=== PATIENT | female | born 1960 | race Caucasian/White ===

== ENCOUNTER 2018-03-27 10:25 | Inpatient (IN) | payer OTHER, BC ==
[2018-03-27] MEDS ORDERED: DEXTROSE 50% 50 ML SYRINGE As Ordered (10:47)
[2018-03-27] MEDS: DEXTROSE 50% 50 ML SYRINGE IV ×2 (10:50→13:16)
[2018-03-27 11:03] LABS: BEDSIDE GLUCOSE 211 MG/DL (70-105)
[2018-03-27] MEDS: NS 1,000 ML IV ×2 (11:15)
[2018-03-27 11:37] LABS: BASO % 0.2 % (0.0-1.0); HEMATOCRIT 31.2 % (36.0-47.0); HEMOGLOBIN 10.4 g/dl (12.0-15.5); IMMATURE GRANULOCYTE % 0.9 % (0-3.0); LYMPH # 0.8 10^3/uL (1.5-4.5); LYMPH % 6.4 % (24.0-44.0); MEAN CORPUSCULAR HEMOGLOBIN 37.5 pg (27.0-33.0); MEAN CORPUSCULAR HGB CONC 33.3 g/dl (32.0-36.5); MEAN CORPUSCULAR VOLUME 112.6 fl (80.0-96.0); MONO # 1.4 10^3/uL (0.0-0.8); MONO % 11.3 % (0.0-5.0); NEUTROPHILS # 9.9 10^3/uL (1.8-7.7); NEUTROPHILS % 81.2 % (36.0-66.0); PLATELET COUNT, AUTOMATED 142 10^3/uL (150-450); RED BLOOD COUNT 2.77 10^6/uL (4.00-5.40); RED CELL DISTRIBUTION WIDTH 17.2 % (11.5-14.5); WHITE BLOOD COUNT 12.1 10^3/uL (4.0-10.0)
[2018-03-27 11:49] LABS: INR 1.06; PARTIAL THROMBOPLASTIN TIME 31.3 SECONDS (26.8-37.9); PROTHROMBIN TIME 13.9 SECONDS (12.4-14.5)
[2018-03-27 11:59] LABS: LACTIC ACID SEPSIS PROTOCOL 1.6 MMOL/L (0.4-2.0)
[2018-03-27 12:04] LABS: ALBUMIN 2.7 GM/DL (3.2-5.2); ALBUMIN/GLOBULIN RATIO 0.77 (1.00-1.93); ALKALINE PHOSPHATASE 175 U/L (45-117); ALT/SGPT 49 U/L (12-78); ANION GAP 25 MEQ/L (8-16); AST/SGOT 166 U/L (7-37); BILIRUBIN,DIRECT 0.4 MG/DL (0.0-0.2); BILIRUBIN,TOTAL 0.8 MG/DL (0.2-1.0); BLOOD UREA NITROGEN 19 MG/DL (7-18); CALCIUM LEVEL 7.6 MG/DL (8.5-10.1); CARBON DIOXIDE LEVEL 11 MEQ/L (21-32); CHLORIDE LEVEL 88 MEQ/L (98-107); CPK CREATINE PHOSPHOKINASE 24 U/L (26-192); CREATININE FOR GFR 1.88 MG/DL (0.55-1.30); GLOMERULAR FILTRATION RATE 29.4 (>51); GLUCOSE, FASTING 154 MG/DL (70-100); POTASSIUM SERUM 3.6 MEQ/L (3.5-5.1); SODIUM LEVEL 124 MEQ/L (136-145); TOTAL PROTEIN 6.2 GM/DL (6.4-8.2); TROPONIN I < 0.02 NG/ML (< 0.10)
[2018-03-27 12:05] LABS: CK-MB VALUE MASS 3.2 NG/ML (<3.6); MB/CK RELATIVE INDEX 13.33 (< OR =4)
[2018-03-27 12:17] LABS: AMYLASE 1675 U/L (25-115); LIPASE 23700 U/L (73-393)
[2018-03-27 13:12] LABS: BEDSIDE GLUCOSE 58 MG/DL (70-105)
[2018-03-27] MEDS: D5W/0.45% SODIUM CHLORIDE 1,000 ML IV (13:40)
[2018-03-27 13:58] LABS: KETONE, URINE AUTO RFX 1+ mg/dL (NEGATIVE); LEUKOCYTE ESTERASE UR AUTO RFX NEGATIVE (NEGATIVE); MUCUS, URINE RFX SMALL (NEGATIVE); NITRITE, URINE AUTO RFX NEGATIVE (NEGATIVE); RBC, URINE AUTO RFX 1 /HPF (0-3); SPECIFIC GRAVITY UR AUTO RFX 1.011 (1.002-1.035); SQUAM EPITHELIAL CELL UR AURFX 4 /HPF (0-6); WBC, URINE AUTO RFX 3 /HPF (0-3)
[2018-03-27 14:06] LABS: OSMOLALITY URINE 282 MOSM/KG (500-800)
[2018-03-27] MEDS: ONDANSETRON 4MG/2ML VIAL (J2405) IV (14:10)
[2018-03-27 14:15] LABS: BEDSIDE GLUCOSE 199 MG/DL (70-105)
[2018-03-27] MEDS: fentaNYL 100 MCG/2 ML INJECTION (J3010) IV ×2 (14:15→14:41)
[2018-03-27 14:19] LABS: CREATININE,RANDOM URINE 66.3 MG/DL; SODIUM,RANDOM URINE 28 MEQ/L
[2018-03-27 14:35] LABS: ABG BASE EXCESS -20.3 (-2.0-2.0); ABG HCO3 6.9 MEQ/L (22.0-26.0); ABG O2 SATURATION 96.1 % (95.0-99.0); ABG PARTIAL PRESSURE CO2 20.5 mmHg (35.0-45.0); ABG PARTIAL PRESSURE O2 99.6 mmHg (75.0-100.0); ABG STANDARD HCO3 9.6 MEQ/L (22.0-26.0); ABG TOTAL CO2 7.5 MEQ/L (22.0-29.0)
[2018-03-27 14:37] LABS: ABG pH (ARTERIAL) 7.143 UNITS (7.350-7.450)
[2018-03-27 14:42] LABS: OSMOLALITY SERUM 292 MOSM/KG (275-295)
[2018-03-27 14:47] LABS: ETHYL ALCOHOL (ETHANOL) 0.067 % (0.000-0.010); FREE T4 0.68 NG/DL (0.76-1.46)
[2018-03-27] MEDS ORDERED: MEROPENEM INJ 2 GM in NS 100 ML IV (15:15)
[2018-03-27 15:37] LABS: MAGNESIUM LEVEL 1.3 MG/DL (1.8-2.4)
[2018-03-27 15:44] LABS: BEDSIDE GLUCOSE 221 MG/DL (70-105)
[2018-03-27 15:51] LABS: CORTISOL BASELINE 33.2 UG/DL (4.3-22.4)
[2018-03-27] MEDS: HYDROmorphone HCL 1 MG/ML SYRINGE (J1170) IV ×2 (16:10→19:50)
[2018-03-27] MEDS: MEROPENEM INJ 1 GM in APPROPRIATE DILUENT 1 EA IV ×3 (16:13→17:00)
[2018-03-27 17:06] LABS: BEDSIDE GLUCOSE 195 MG/DL (70-105)
[2018-03-27 18:05] LABS: VENOUS BASE EXCESS -15.3 (-2.0-2.0); VENOUS HCO3 12.6 MEQ/L (23.0-27.0); VENOUS O2 SATURATION 80.4 % (60.0-80.0); VENOUS PARTIAL PRESSURE O2 50.3 mmHg (30.0-50.0); VENOUS PH 7.151 UNITS (7.330-7.430); VENOUS STANDARD HCO3 12.6 MEQ/L; VENOUS TOTAL CO2 13.8 MEQ/L (24.0-28.0)
[2018-03-27 18:05] LABS: BEDSIDE GLUCOSE 146 MG/DL (70-105)
[2018-03-27 18:32] LABS: ANION GAP 18 MEQ/L (8-16); BLOOD UREA NITROGEN 15 MG/DL (7-18); CALCIUM LEVEL 7.5 MG/DL (8.5-10.1); CARBON DIOXIDE LEVEL 15 MEQ/L (21-32); CHLORIDE LEVEL 95 MEQ/L (98-107); CK-MB VALUE MASS 4.9 NG/ML (<3.6); CPK CREATINE PHOSPHOKINASE 59 U/L (26-192); GLOMERULAR FILTRATION RATE 44.9 (>51); GLUCOSE, FASTING 136 MG/DL (70-100); POTASSIUM SERUM 4.3 MEQ/L (3.5-5.1); SODIUM LEVEL 128 MEQ/L (136-145); TROPONIN I < 0.02 NG/ML (< 0.10)
[2018-03-27 18:35] LABS: ACETONE/KETONE > 46.00 MG/DL (<2.81)
[2018-03-27 19:26] LABS: BEDSIDE GLUCOSE 174 MG/DL (70-105)
[2018-03-27] MEDS: OXAZEPAM 10 MG CAP PO ×2 (19:49→23:35)
[2018-03-27] MEDS: D5W/0.9% SODIUM CHLORIDE 1,000 ML IV (19:51)
[2018-03-27 20:34] LABS: BEDSIDE GLUCOSE 183 MG/DL (70-105)
[2018-03-27] MEDS ORDERED: DEXTROSE 50% 50 ML SYRINGE IV (23:00)
[2018-03-27] MEDS ORDERED: GLUCAGON FOR INJ 1 MG VIAL (J1610) SC (23:00)
[2018-03-27] MEDS ORDERED: GLUCOSE 4 GM CHEW TABLET PO (23:00)
[2018-03-27 23:17] LABS: BEDSIDE GLUCOSE 211 MG/DL (70-105)
[2018-03-27] MEDS: PANTOPRAZOLE 40MG INJ (PROTONIX) (C9113) IV (23:35)
[2018-03-27] MEDS: HumaLOG INSULIN (NovoLOG) PER UNIT SC (23:35)
[2018-03-28 00:53] LABS: ANION GAP 11 MEQ/L (8-16); BLOOD UREA NITROGEN 14 MG/DL (7-18); CALCIUM LEVEL 7.2 MG/DL (8.5-10.1); CARBON DIOXIDE LEVEL 19 MEQ/L (21-32); CHLORIDE LEVEL 99 MEQ/L (98-107); CK-MB VALUE MASS 4.9 NG/ML (<3.6); CPK CREATINE PHOSPHOKINASE 32 U/L (26-192); CREATININE FOR GFR 1.26 MG/DL (0.55-1.30); GLOMERULAR FILTRATION RATE 46.6 (>51); GLUCOSE, FASTING 191 MG/DL (70-100); MB/CK RELATIVE INDEX 15.31 (< OR =4); POTASSIUM SERUM 3.6 MEQ/L (3.5-5.1); SODIUM LEVEL 129 MEQ/L (136-145); TROPONIN I < 0.02 NG/ML (< 0.10)
[2018-03-28] MEDS: D5W/0.9% SODIUM CHLORIDE 1,000 ML IV (00:59)
[2018-03-28] MEDS: MAG SULF 1GM/100ML (MAG RUN) 1 GM in APPROPRIATE DILUENT 1 EA IV ×4 (01:40→09:26)
[2018-03-28] MEDS: MEROPENEM INJ 1 GM in APPROPRIATE DILUENT 1 EA IV ×2 (04:40→17:15)
[2018-03-28 06:02] LABS: BEDSIDE GLUCOSE 189 MG/DL (70-105)
[2018-03-28] MEDS: OXAZEPAM 10 MG CAP PO ×3 (06:07→21:48)
[2018-03-28] MEDS: HumaLOG INSULIN (NovoLOG) PER UNIT SC ×3 (06:08→19:03)
[2018-03-28 06:22] LABS: ALBUMIN 2.7 GM/DL (3.2-5.2); ALBUMIN/GLOBULIN RATIO 0.93 (1.00-1.93); ALKALINE PHOSPHATASE 148 U/L (45-117); ALT/SGPT 37 U/L (12-78); ANION GAP 11 MEQ/L (8-16); AST/SGOT 116 U/L (7-37); BLOOD UREA NITROGEN 12 MG/DL (7-18); CALCIUM LEVEL 7.5 MG/DL (8.5-10.1); CARBON DIOXIDE LEVEL 20 MEQ/L (21-32); CHLORIDE LEVEL 100 MEQ/L (98-107); CHOLESTEROL LEVEL 113 MG/DL (<200); CHOLESTEROL RISK RATIO 3.896 (<5); CREATININE FOR GFR 1.03 MG/DL (0.55-1.30); GLOMERULAR FILTRATION RATE 58.8 (>51); GLUCOSE, FASTING 153 MG/DL (70-100); HDL CHOLESTEROL 29 MG/DL (>40); LDL CHOLESTEROL 58.8 MG/DL (<100); LIPASE 6030 U/L (73-393); MAGNESIUM LEVEL 1.5 MG/DL (1.8-2.4); NON-HDL-C 84 MG/DL; POTASSIUM SERUM 3.5 MEQ/L (3.5-5.1); SODIUM LEVEL 131 MEQ/L (136-145); TOTAL PROTEIN 5.6 GM/DL (6.4-8.2); TRIGLYCERIDES LEVEL 126 MG/DL (<150)
[2018-03-28 06:26] LABS: FERRITIN 1440 NG/ML (8-252); IRON (FE) 55 UG/DL (50-170); PERCENT SATURATION 37.7 % (13.2-45.0); TOTAL IRON BINDING CAPACITY 146 UG/DL (250-450)
[2018-03-28 07:21] LABS: BASO % 0.1 % (0.0-1.0); HEMATOCRIT 27.1 % (36.0-47.0); HEMOGLOBIN 9.8 g/dl (12.0-15.5); IMMATURE GRANULOCYTE % 0.6 % (0-3.0); LYMPH # 0.4 10^3/uL (1.5-4.5); LYMPH % 2.8 % (24.0-44.0); MEAN CORPUSCULAR HEMOGLOBIN 37.5 pg (27.0-33.0); MEAN CORPUSCULAR HGB CONC 36.2 g/dl (32.0-36.5); MEAN CORPUSCULAR VOLUME 103.8 fl (80.0-96.0); MONO # 1.4 10^3/uL (0.0-0.8); MONO % 9.2 % (0.0-5.0); NEUTROPHILS # 13.4 10^3/uL (1.8-7.7); NEUTROPHILS % 87.3 % (36.0-66.0); PLATELET COUNT, AUTOMATED 119 10^3/uL (150-450); RED BLOOD COUNT 2.61 10^6/uL (4.00-5.40); RED CELL DISTRIBUTION WIDTH 16.5 % (11.5-14.5); WHITE BLOOD COUNT 15.3 10^3/uL (4.0-10.0)
[2018-03-28 09:15] LABS: BEDSIDE GLUCOSE 23 MG/DL (70-105)
[2018-03-28 09:15] LABS: BEDSIDE GLUCOSE 53 MG/DL (70-105)
[2018-03-28 09:15] LABS: BEDSIDE GLUCOSE 49 MG/DL (70-105)
[2018-03-28] MEDS: PANTOPRAZOLE 40MG INJ (PROTONIX) (C9113) IV ×2 (09:24→21:48)
[2018-03-28] MEDS: THIAMINE 100 MG TAB PO (09:25)
[2018-03-28] MEDS: FOLIC ACID 1 MG TAB PO (09:26)
[2018-03-28] MEDS: MULTIVITAMINS/MINERALS THERAP 1 TAB PO (09:26)
[2018-03-28 09:40] LABS: FOLATE 5.9 NG/ML (>5.4)
[2018-03-28 09:41] LABS: VITAMIN B12 LEVEL 1057 PG/ML (247-911)
[2018-03-28] MEDS: NS 1,000 ML IV ×2 (10:41→21:48)
[2018-03-28 10:47] LABS: CPK CREATINE PHOSPHOKINASE 43 U/L (26-192); MB/CK RELATIVE INDEX 11.62 (< OR =4); TROPONIN I 0.04 NG/ML (< 0.10)
[2018-03-28 11:18] LABS: BEDSIDE GLUCOSE 164 MG/DL (70-105)
[2018-03-28 12:18] LABS: BEDSIDE GLUCOSE 153 MG/DL (70-105)
[2018-03-28 12:53] LABS: ANION GAP 11 MEQ/L (8-16); BLOOD UREA NITROGEN 9 MG/DL (7-18); CARBON DIOXIDE LEVEL 20 MEQ/L (21-32); CHLORIDE LEVEL 102 MEQ/L (98-107); CREATININE FOR GFR 0.84 MG/DL (0.55-1.30); GLOMERULAR FILTRATION RATE > 60.0 (>51); GLUCOSE, FASTING 139 MG/DL (70-100); POTASSIUM SERUM 3.4 MEQ/L (3.5-5.1); SODIUM LEVEL 133 MEQ/L (136-145)
[2018-03-28] MEDS: BENAZEPRIL 20 MG TAB PO (13:26)
[2018-03-28] MEDS: BISOPROLOL FUMARATE 10 MG TAB PO (13:26)
[2018-03-28] MEDS: POTASSIUM CHLORIDE 10 MEQ SR TABLET PO (13:27)
[2018-03-28 15:37] LABS: BEDSIDE GLUCOSE 69 MG/DL (70-105)
[2018-03-28] MEDS ORDERED: MEROPENEM INJ 2 GM in NS 100 ML IV (16:00)
[2018-03-28 16:27] LABS: BEDSIDE GLUCOSE 136 MG/DL (70-105)
[2018-03-28 18:31] LABS: ANION GAP 11 MEQ/L (8-16); BLOOD UREA NITROGEN 7 MG/DL (7-18); CALCIUM LEVEL 7.8 MG/DL (8.5-10.1); CARBON DIOXIDE LEVEL 18 MEQ/L (21-32); CHLORIDE LEVEL 105 MEQ/L (98-107); CREATININE FOR GFR 0.82 MG/DL (0.55-1.30); GLOMERULAR FILTRATION RATE > 60.0 (>51); GLUCOSE, FASTING 101 MG/DL (70-100); POTASSIUM SERUM 3.7 MEQ/L (3.5-5.1); SODIUM LEVEL 134 MEQ/L (136-145)
[2018-03-29 00:06] LABS: BEDSIDE GLUCOSE 119 MG/DL (70-105)
[2018-03-29 00:37] LABS: ANION GAP 9 MEQ/L (8-16); BLOOD UREA NITROGEN 6 MG/DL (7-18); CARBON DIOXIDE LEVEL 20 MEQ/L (21-32); CHLORIDE LEVEL 105 MEQ/L (98-107); CREATININE FOR GFR 0.59 MG/DL (0.55-1.30); GLOMERULAR FILTRATION RATE > 60.0 (>51); GLUCOSE, FASTING 108 MG/DL (70-100); POTASSIUM SERUM 3.4 MEQ/L (3.5-5.1); SODIUM LEVEL 134 MEQ/L (136-145)
[2018-03-29] MEDS: MEROPENEM INJ 1 GM in APPROPRIATE DILUENT 1 EA IV (03:33)
[2018-03-29 05:47] LABS: BEDSIDE GLUCOSE 117 MG/DL (70-105)
[2018-03-29] MEDS: HumaLOG INSULIN (NovoLOG) PER UNIT SC ×3 (05:52→12:25)
[2018-03-29] MEDS: OXAZEPAM 10 MG CAP PO ×3 (06:10→22:08)
[2018-03-29 06:15] LABS: BASO % 0.1 % (0.0-1.0); EOS % 0.1 % (0.0-3.0); HEMATOCRIT 26.4 % (36.0-47.0); HEMOGLOBIN 9.5 g/dl (12.0-15.5); IMMATURE GRANULOCYTE % 0.5 % (0-3.0); LYMPH # 0.8 10^3/uL (1.5-4.5); LYMPH % 8.2 % (24.0-44.0); MEAN CORPUSCULAR HEMOGLOBIN 37.1 pg (27.0-33.0); MEAN CORPUSCULAR VOLUME 103.1 fl (80.0-96.0); MONO # 1.2 10^3/uL (0.0-0.8); MONO % 13.1 % (0.0-5.0); NEUTROPHILS # 7.1 10^3/uL (1.8-7.7); PLATELET COUNT, AUTOMATED 101 10^3/uL (150-450); RED BLOOD COUNT 2.56 10^6/uL (4.00-5.40); RED CELL DISTRIBUTION WIDTH 16.8 % (11.5-14.5); WHITE BLOOD COUNT 9.1 10^3/uL (4.0-10.0)
[2018-03-29 06:45] LABS: ALBUMIN 2.6 GM/DL (3.2-5.2); ALBUMIN/GLOBULIN RATIO 0.81 (1.00-1.93); ALKALINE PHOSPHATASE 164 U/L (45-117); ALT/SGPT 29 U/L (12-78); ANION GAP 8 MEQ/L (8-16); AST/SGOT 74 U/L (7-37); BLOOD UREA NITROGEN 6 MG/DL (7-18); CARBON DIOXIDE LEVEL 19 MEQ/L (21-32); CHLORIDE LEVEL 108 MEQ/L (98-107); CREATININE FOR GFR 0.52 MG/DL (0.55-1.30); GLOMERULAR FILTRATION RATE > 60.0 (>51); GLUCOSE, FASTING 104 MG/DL (70-100); LIPASE 972 U/L (73-393); MAGNESIUM LEVEL 1.5 MG/DL (1.8-2.4); POTASSIUM SERUM 3.3 MEQ/L (3.5-5.1); SODIUM LEVEL 135 MEQ/L (136-145); TOTAL PROTEIN 5.8 GM/DL (6.4-8.2)
[2018-03-29] MEDS: MAG SULF 1GM/100ML (MAG RUN) 1 GM in APPROPRIATE DILUENT 1 EA IV ×2 (08:12→09:16)
[2018-03-29] MEDS: PANTOPRAZOLE 40MG INJ (PROTONIX) (C9113) IV ×2 (09:15→22:08)
[2018-03-29] MEDS: MULTIVITAMINS/MINERALS THERAP 1 TAB PO (09:17)
[2018-03-29] MEDS: POTASSIUM CHLORIDE 10 MEQ SR TABLET PO (09:18)
[2018-03-29] MEDS: BISOPROLOL FUMARATE 10 MG TAB PO (09:18)
[2018-03-29] MEDS: FOLIC ACID 1 MG TAB PO (09:18)
[2018-03-29] MEDS: THIAMINE 100 MG TAB PO (09:19)
[2018-03-29] MEDS: BENAZEPRIL 20 MG TAB PO (09:28)
[2018-03-29 11:27] LABS: BEDSIDE GLUCOSE 199 MG/DL (70-105)
[2018-03-29] MEDS ORDERED: SLF 3 ML SYR IV (11:30)
[2018-03-29 12:25] LABS: ANION GAP 8 MEQ/L (8-16); BLOOD UREA NITROGEN 5 MG/DL (7-18); CARBON DIOXIDE LEVEL 22 MEQ/L (21-32); CHLORIDE LEVEL 104 MEQ/L (98-107); CREATININE FOR GFR 0.59 MG/DL (0.55-1.30); GLOMERULAR FILTRATION RATE > 60.0 (>51); GLUCOSE, FASTING 146 MG/DL (70-100); POTASSIUM SERUM 3.7 MEQ/L (3.5-5.1); SODIUM LEVEL 134 MEQ/L (136-145)
[2018-03-29] MEDS: SLF 3 ML SYR IV ×2 (13:33→22:08)
[2018-03-29 14:16] LABS: INSULIN LEVEL < 0.2 uIU/mL (2.6-24.9)
[2018-03-30] MEDS: IPRATROPIUM 0.5MG/ALBUTEROL 2.5MG INH SOL UD 3ML (DUONEB)(J7620) NEB ×8 (00:18→22:26)
[2018-03-30] MEDS: predniSONE 20 MG TAB PO (02:41)
[2018-03-30 03:06] LABS: ABG BASE EXCESS -5.3 (-2.0-2.0); ABG O2 SATURATION 93.3 % (95.0-99.0); ABG PARTIAL PRESSURE CO2 23.7 mmHg (35.0-45.0); ABG PARTIAL PRESSURE O2 63.7 mmHg (75.0-100.0); ABG TOTAL CO2 17.7 MEQ/L (22.0-29.0); ABG pH (ARTERIAL) 7.474 UNITS (7.350-7.450)
[2018-03-30] MEDS: LORazepam 2 MG/ML VIAL (J2060) IV ×5 (03:29→22:39)
[2018-03-30] MEDS: OXAZEPAM 10 MG CAP PO ×2 (04:12→06:00)
[2018-03-30 05:28] LABS: BASO % 0.1 % (0.0-1.0); HEMATOCRIT 25.4 % (36.0-47.0); HEMOGLOBIN 8.8 g/dl (12.0-15.5); IMMATURE GRANULOCYTE % 0.6 % (0-3.0); LYMPH # 0.3 10^3/uL (1.5-4.5); LYMPH % 2.3 % (24.0-44.0); MEAN CORPUSCULAR HEMOGLOBIN 36.4 pg (27.0-33.0); MEAN CORPUSCULAR HGB CONC 34.6 g/dl (32.0-36.5); MONO # 0.5 10^3/uL (0.0-0.8); MONO % 4.2 % (0.0-5.0); NEUTROPHILS # 11.5 10^3/uL (1.8-7.7); NEUTROPHILS % 92.8 % (36.0-66.0); PLATELET COUNT, AUTOMATED 105 10^3/uL (150-450); RED BLOOD COUNT 2.42 10^6/uL (4.00-5.40); RED CELL DISTRIBUTION WIDTH 17.1 % (11.5-14.5); WHITE BLOOD COUNT 12.4 10^3/uL (4.0-10.0)
[2018-03-30 05:40] LABS: POSITIVE DIFF POS FLAG
[2018-03-30 05:45] LABS: ALBUMIN 2.8 GM/DL (3.2-5.2); ALBUMIN/GLOBULIN RATIO 0.82 (1.00-1.93); ALKALINE PHOSPHATASE 164 U/L (45-117); ALT/SGPT 29 U/L (12-78); ANION GAP 10 MEQ/L (8-16); AST/SGOT 51 U/L (7-37); BILIRUBIN,TOTAL 1.5 MG/DL (0.2-1.0); BLOOD UREA NITROGEN 7 MG/DL (7-18); CALCIUM LEVEL 8.3 MG/DL (8.5-10.1); CARBON DIOXIDE LEVEL 20 MEQ/L (21-32); CHLORIDE LEVEL 102 MEQ/L (98-107); CREATININE FOR GFR 0.63 MG/DL (0.55-1.30); GLOMERULAR FILTRATION RATE > 60.0 (>51); GLUCOSE, FASTING 204 MG/DL (70-100); LIPASE 517 U/L (73-393); MAGNESIUM LEVEL 1.4 MG/DL (1.8-2.4); POTASSIUM SERUM 3.8 MEQ/L (3.5-5.1); SODIUM LEVEL 132 MEQ/L (136-145); TOTAL PROTEIN 6.2 GM/DL (6.4-8.2)
[2018-03-30] MEDS: HALOPERIDOL 5 MG/ML VIAL (J1630) IV (05:48)
[2018-03-30] MEDS: SLF 3 ML SYR IV ×3 (05:54→21:19)
[2018-03-30] MEDS: VANCOMYCIN HCL 1,000 MG, VIAL MATE ADAPTER 1 EACH in D5W 250 ML IV ×3 (07:04→21:19)
[2018-03-30] MEDS ORDERED: PIPERACILLIN/TAZOBACTAM SOD 3.375 GM in D5W MINI-BAG PLUS 50 ML IV (08:00)
[2018-03-30 08:07] LABS: LACTIC ACID SEPSIS PROTOCOL 3.6 MMOL/L (0.4-2.0)
[2018-03-30] MEDS: SODIUM CHLORIDE 0.9% 1000 ML IV (08:30)
[2018-03-30 08:58] LABS: ABG BASE EXCESS -5.2 (-2.0-2.0); ABG HCO3 16.6 MEQ/L (22.0-26.0); ABG O2 SATURATION 98.6 % (95.0-99.0); ABG PARTIAL PRESSURE CO2 20.8 mmHg (35.0-45.0); ABG PARTIAL PRESSURE O2 94.6 mmHg (75.0-100.0); ABG STANDARD HCO3 20.1 MEQ/L (22.0-26.0); ABG TOTAL CO2 17.2 MEQ/L (22.0-29.0); ABG pH (ARTERIAL) 7.519 UNITS (7.350-7.450)
[2018-03-30] MEDS: MEROPENEM INJ 1 GM in APPROPRIATE DILUENT 1 EA IV ×2 (09:00→17:21)
[2018-03-30] MEDS: BENAZEPRIL 20 MG TAB PO (09:00)
[2018-03-30] MEDS: PANTOPRAZOLE 40MG INJ (PROTONIX) (C9113) IV ×2 (09:00→21:19)
[2018-03-30] MEDS: FOLIC ACID 1 MG TAB PO (09:47)
[2018-03-30] MEDS: BISOPROLOL FUMARATE 10 MG TAB PO (09:47)
[2018-03-30] MEDS: MAG SULF 1GM/100ML (MAG RUN) 1 GM in APPROPRIATE DILUENT 1 EA IV ×2 (09:48→10:30)
[2018-03-30] MEDS: MULTIVITAMINS/MINERALS THERAP 1 TAB PO (09:48)
[2018-03-30] MEDS: THIAMINE 100 MG TAB PO (09:48)
[2018-03-30] MEDS: NS 1,000 ML IV ×3 (09:50→22:39)
[2018-03-30] MEDS: OXAZEPAM 15 MG CAP PO ×2 (13:41→19:46)
[2018-03-30 14:18] LABS: ABG BASE EXCESS -5.6 (-2.0-2.0); ABG HCO3 18.4 MEQ/L (22.0-26.0); ABG PARTIAL PRESSURE CO2 30.4 mmHg (35.0-45.0); ABG PARTIAL PRESSURE O2 62.8 mmHg (75.0-100.0); ABG STANDARD HCO3 19.8 MEQ/L (22.0-26.0); ABG TOTAL CO2 19.3 MEQ/L (22.0-29.0); ABG pH (ARTERIAL) 7.399 UNITS (7.350-7.450)
[2018-03-30 14:51] LABS: LIPASE 637 U/L (73-393)
[2018-03-30 15:06] LABS: LACTIC ACID SEPSIS PROTOCOL 2.5 MMOL/L (0.4-2.0)
[2018-03-30] MEDS: methylPREDNISolone INJ 125 MG/2 ML VIAL (J2930) IV ×2 (15:14→22:40)
[2018-03-30 17:34] LABS: ABG BASE EXCESS -5.6 (-2.0-2.0); ABG HCO3 17.5 MEQ/L (22.0-26.0); ABG PARTIAL PRESSURE CO2 26.3 mmHg (35.0-45.0); ABG PARTIAL PRESSURE O2 62.3 mmHg (75.0-100.0); ABG STANDARD HCO3 19.8 MEQ/L (22.0-26.0); ABG TOTAL CO2 18.3 MEQ/L (22.0-29.0)
[2018-03-30 17:57] LABS: ALBUMIN 2.6 GM/DL (3.2-5.2); ALBUMIN/GLOBULIN RATIO 0.72 (1.00-1.93); ALKALINE PHOSPHATASE 154 U/L (45-117); ALT/SGPT 26 U/L (12-78); ANION GAP 9 MEQ/L (8-16); AST/SGOT 47 U/L (7-37); BILIRUBIN,TOTAL 1.4 MG/DL (0.2-1.0); BLOOD UREA NITROGEN 7 MG/DL (7-18); CALCIUM LEVEL 7.9 MG/DL (8.5-10.1); CARBON DIOXIDE LEVEL 20 MEQ/L (21-32); CHLORIDE LEVEL 104 MEQ/L (98-107); CREATININE FOR GFR 0.56 MG/DL (0.55-1.30); GLOMERULAR FILTRATION RATE > 60.0 (>51); GLUCOSE, FASTING 198 MG/DL (70-100); MAGNESIUM LEVEL 1.8 MG/DL (1.8-2.4); POTASSIUM SERUM 3.8 MEQ/L (3.5-5.1); SODIUM LEVEL 133 MEQ/L (136-145); TOTAL PROTEIN 6.2 GM/DL (6.4-8.2)
[2018-03-31] MEDS: MEROPENEM INJ 1 GM in APPROPRIATE DILUENT 1 EA IV ×3 (01:13→17:00)
[2018-03-31] MEDS: OXAZEPAM 15 MG CAP PO ×4 (01:13→20:38)
[2018-03-31] MEDS: IPRATROPIUM 0.5MG/ALBUTEROL 2.5MG INH SOL UD 3ML (DUONEB)(J7620) NEB ×5 (03:30→20:08)
[2018-03-31] MEDS: LORazepam 2 MG/ML VIAL (J2060) IV ×4 (03:35→22:34)
[2018-03-31 03:37] LABS: BASO % 0.1 % (0.0-1.0); HEMATOCRIT 24.7 % (36.0-47.0); HEMOGLOBIN 8.6 g/dl (12.0-15.5); IMMATURE GRANULOCYTE % 0.8 % (0-3.0); LYMPH # 0.4 10^3/uL (1.5-4.5); LYMPH % 2.8 % (24.0-44.0); MEAN CORPUSCULAR HEMOGLOBIN 37.2 pg (27.0-33.0); MEAN CORPUSCULAR HGB CONC 34.8 g/dl (32.0-36.5); MEAN CORPUSCULAR VOLUME 106.9 fl (80.0-96.0); MONO # 0.4 10^3/uL (0.0-0.8); MONO % 3.1 % (0.0-5.0); NEUTROPHILS # 12.2 10^3/uL (1.8-7.7); NEUTROPHILS % 93.2 % (36.0-66.0); PLATELET COUNT, AUTOMATED 125 10^3/uL (150-450); RED BLOOD COUNT 2.31 10^6/uL (4.00-5.40); RED CELL DISTRIBUTION WIDTH 17.1 % (11.5-14.5)
[2018-03-31 04:04] LABS: ALBUMIN 2.6 GM/DL (3.2-5.2); ALBUMIN/GLOBULIN RATIO 0.79 (1.00-1.93); ALKALINE PHOSPHATASE 140 U/L (45-117); ALT/SGPT 26 U/L (12-78); ANION GAP 9 MEQ/L (8-16); AST/SGOT 31 U/L (7-37); BILIRUBIN,TOTAL 1.1 MG/DL (0.2-1.0); BLOOD UREA NITROGEN 8 MG/DL (7-18); CALCIUM LEVEL 7.9 MG/DL (8.5-10.1); CARBON DIOXIDE LEVEL 20 MEQ/L (21-32); CHLORIDE LEVEL 105 MEQ/L (98-107); CREATININE FOR GFR 0.57 MG/DL (0.55-1.30); GLOMERULAR FILTRATION RATE > 60.0 (>51); GLUCOSE, FASTING 228 MG/DL (70-100); LIPASE 474 U/L (73-393); MAGNESIUM LEVEL 1.6 MG/DL (1.8-2.4); POTASSIUM SERUM 3.8 MEQ/L (3.5-5.1); SODIUM LEVEL 134 MEQ/L (136-145); TOTAL PROTEIN 5.9 GM/DL (6.4-8.2)
[2018-03-31] MEDS: SLF 3 ML SYR IV ×3 (06:08→22:34)
[2018-03-31] MEDS: methylPREDNISolone INJ 125 MG/2 ML VIAL (J2930) IV (06:09)
[2018-03-31] MEDS: FOLIC ACID 1 MG TAB PO (08:48)
[2018-03-31] MEDS: BENAZEPRIL 20 MG TAB PO (08:49)
[2018-03-31] MEDS: THIAMINE 100 MG TAB PO (08:49)
[2018-03-31] MEDS: MULTIVITAMINS/MINERALS THERAP 1 TAB PO (08:49)
[2018-03-31] MEDS: BISOPROLOL FUMARATE 10 MG TAB PO (08:49)
[2018-03-31] MEDS: MAG SULF 1GM/100ML (MAG RUN) 1 GM in APPROPRIATE DILUENT 1 EA IV (09:00)
[2018-03-31] MEDS: NS 1,000 ML IV ×2 (09:02→18:18)
[2018-03-31] MEDS: PANTOPRAZOLE 40MG INJ (PROTONIX) (C9113) IV ×2 (09:08→20:38)
[2018-03-31] MEDS: LABETALOL HCL 100 MG/20 ML VIAL IV ×3 (09:13→20:39)
[2018-03-31] MEDS: VANCOMYCIN HCL 1,000 MG, VIAL MATE ADAPTER 1 EACH in D5W 250 ML IV (10:05)
[2018-03-31] MEDS: MULTIVITAMIN -ADULT INJECTION 10 ML, THIAMINE INJection 100 MG, FOLIC ACID 1 MG in NS 1... IV (15:17)
[2018-03-31] MEDS: HEPARIN SOD (PORCINE) 5000 UNITS/ML VIAL SQ ×2 (15:17→22:00)
[2018-03-31] MEDS: methylPREDNISolone INJ 40 MG/1 ML VIAL (J2920) IV ×2 (15:17→23:43)
[2018-04-01] MEDS: IPRATROPIUM 0.5MG/ALBUTEROL 2.5MG INH SOL UD 3ML (DUONEB)(J7620) NEB ×7 (00:27→23:58)
[2018-04-01] MEDS: MEROPENEM INJ 1 GM in APPROPRIATE DILUENT 1 EA IV ×3 (01:37→16:30)
[2018-04-01] MEDS: OXAZEPAM 15 MG CAP PO ×4 (02:00→21:32)
[2018-04-01 03:41] LABS: HEMATOCRIT 24.9 % (36.0-47.0); HEMOGLOBIN 8.5 g/dl (12.0-15.5); IMMATURE GRANULOCYTE % 0.9 % (0-3.0); LYMPH # 0.4 10^3/uL (1.5-4.5); LYMPH % 3.2 % (24.0-44.0); MEAN CORPUSCULAR HEMOGLOBIN 37.3 pg (27.0-33.0); MEAN CORPUSCULAR HGB CONC 34.1 g/dl (32.0-36.5); MEAN CORPUSCULAR VOLUME 109.2 fl (80.0-96.0); MONO # 0.6 10^3/uL (0.0-0.8); MONO % 4.6 % (0.0-5.0); NEUTROPHILS # 11.7 10^3/uL (1.8-7.7); NEUTROPHILS % 91.3 % (36.0-66.0); PLATELET COUNT, AUTOMATED 166 10^3/uL (150-450); RED BLOOD COUNT 2.28 10^6/uL (4.00-5.40); RED CELL DISTRIBUTION WIDTH 17.2 % (11.5-14.5); WHITE BLOOD COUNT 12.8 10^3/uL (4.0-10.0)
[2018-04-01] MEDS: LORazepam 2 MG/ML VIAL (J2060) IV ×4 (03:56→23:21)
[2018-04-01] MEDS: LABETALOL HCL 100 MG/20 ML VIAL IV (03:57)
[2018-04-01 04:11] LABS: ALBUMIN 2.5 GM/DL (3.2-5.2); ALBUMIN/GLOBULIN RATIO 0.71 (1.00-1.93); ALKALINE PHOSPHATASE 137 U/L (45-117); ALT/SGPT 24 U/L (12-78); ANION GAP 8 MEQ/L (8-16); AST/SGOT 32 U/L (7-37); BILIRUBIN,TOTAL 0.8 MG/DL (0.2-1.0); BLOOD UREA NITROGEN 10 MG/DL (7-18); CALCIUM LEVEL 8.2 MG/DL (8.5-10.1); CARBON DIOXIDE LEVEL 22 MEQ/L (21-32); CHLORIDE LEVEL 108 MEQ/L (98-107); CREATININE FOR GFR 0.51 MG/DL (0.55-1.30); GLOMERULAR FILTRATION RATE > 60.0 (>51); GLUCOSE, FASTING 166 MG/DL (70-100); LIPASE 401 U/L (73-393); MAGNESIUM LEVEL 1.7 MG/DL (1.8-2.4); POTASSIUM SERUM 3.9 MEQ/L (3.5-5.1); SODIUM LEVEL 138 MEQ/L (136-145)
[2018-04-01] MEDS: NS 1,000 ML IV ×3 (04:55→23:22)
[2018-04-01] MEDS: HEPARIN SOD (PORCINE) 5000 UNITS/ML VIAL SQ ×3 (06:25→21:32)
[2018-04-01] MEDS: SLF 3 ML SYR IV ×3 (06:25→21:32)
[2018-04-01] MEDS: methylPREDNISolone INJ 40 MG/1 ML VIAL (J2920) IV ×2 (06:30→18:11)
[2018-04-01] MEDS: MAG SULF 1GM/100ML (MAG RUN) 1 GM in APPROPRIATE DILUENT 1 EA IV (08:36)
[2018-04-01] MEDS: PANTOPRAZOLE 40MG INJ (PROTONIX) (C9113) IV ×2 (08:37→21:32)
[2018-04-01] MEDS: THIAMINE 100 MG TAB PO (08:37)
[2018-04-01] MEDS: FOLIC ACID 1 MG TAB PO (08:37)
[2018-04-01] MEDS: MULTIVITAMINS/MINERALS THERAP 1 TAB PO (08:37)
[2018-04-01] MEDS ORDERED: AZELASTINE 137MCG NASAL SPY 30 ML (ASTELIN) (08:45)
[2018-04-01 11:27] LABS: BEDSIDE GLUCOSE 198 MG/DL (70-105)
[2018-04-01] MEDS: BISOPROLOL FUMARATE 10 MG TAB PO (11:29)
[2018-04-01] MEDS: busPIRone 5 MG TAB PO ×2 (11:29→21:31)
[2018-04-01] MEDS: NICOTINE 14 MG/24 HR TRANSDERMAL TD (11:30)
[2018-04-01] MEDS: BENAZEPRIL 20 MG TAB PO (11:30)
[2018-04-02] MEDS: MEROPENEM INJ 1 GM in APPROPRIATE DILUENT 1 EA IV ×3 (01:18→17:42)
[2018-04-02] MEDS: OXAZEPAM 15 MG CAP PO ×4 (02:00→20:31)
[2018-04-02] MEDS: LORazepam 2 MG/ML VIAL (J2060) IV ×2 (02:26→23:14)
[2018-04-02] MEDS: IPRATROPIUM 0.5MG/ALBUTEROL 2.5MG INH SOL UD 3ML (DUONEB)(J7620) NEB ×7 (03:52→23:44)
[2018-04-02 05:08] LABS: BASO % 0.1 % (0.0-1.0); HEMATOCRIT 24.3 % (36.0-47.0); HEMOGLOBIN 8.1 g/dl (12.0-15.5); IMMATURE GRANULOCYTE % 1.4 % (0-3.0); LYMPH # 0.8 10^3/uL (1.5-4.5); LYMPH % 7.6 % (24.0-44.0); MEAN CORPUSCULAR HEMOGLOBIN 37.5 pg (27.0-33.0); MEAN CORPUSCULAR HGB CONC 33.3 g/dl (32.0-36.5); MEAN CORPUSCULAR VOLUME 112.5 fl (80.0-96.0); MONO # 1.1 10^3/uL (0.0-0.8); MONO % 10.7 % (0.0-5.0); NEUTROPHILS # 8.6 10^3/uL (1.8-7.7); NEUTROPHILS % 80.2 % (36.0-66.0); PLATELET COUNT, AUTOMATED 251 10^3/uL (150-450); RED BLOOD COUNT 2.16 10^6/uL (4.00-5.40); RED CELL DISTRIBUTION WIDTH 17.2 % (11.5-14.5); WHITE BLOOD COUNT 10.7 10^3/uL (4.0-10.0)
[2018-04-02 05:24] LABS: ALBUMIN 2.2 GM/DL (3.2-5.2); ALBUMIN/GLOBULIN RATIO 0.69 (1.00-1.93); ALKALINE PHOSPHATASE 131 U/L (45-117); ALT/SGPT 25 U/L (12-78); ANION GAP 8 MEQ/L (8-16); AST/SGOT 32 U/L (7-37); BILIRUBIN,TOTAL 0.5 MG/DL (0.2-1.0); BLOOD UREA NITROGEN 12 MG/DL (7-18); CALCIUM LEVEL 7.8 MG/DL (8.5-10.1); CARBON DIOXIDE LEVEL 23 MEQ/L (21-32); CHLORIDE LEVEL 111 MEQ/L (98-107); CREATININE FOR GFR 0.42 MG/DL (0.55-1.30); GLOMERULAR FILTRATION RATE > 60.0 (>51); GLUCOSE, FASTING 129 MG/DL (70-100); LIPASE 303 U/L (73-393); MAGNESIUM LEVEL 1.7 MG/DL (1.8-2.4); POTASSIUM SERUM 3.6 MEQ/L (3.5-5.1); SODIUM LEVEL 142 MEQ/L (136-145); TOTAL PROTEIN 5.4 GM/DL (6.4-8.2)
[2018-04-02] MEDS: methylPREDNISolone INJ 40 MG/1 ML VIAL (J2920) IV (06:17)
[2018-04-02] MEDS: HEPARIN SOD (PORCINE) 5000 UNITS/ML VIAL SQ ×3 (06:17→21:26)
[2018-04-02] MEDS: SLF 3 ML SYR IV ×3 (06:18→21:26)
[2018-04-02] MEDS: PANTOPRAZOLE 40MG INJ (PROTONIX) (C9113) IV ×2 (08:39→21:25)
[2018-04-02] MEDS: NICOTINE 14 MG/24 HR TRANSDERMAL TD (08:39)
[2018-04-02] MEDS: THIAMINE 100 MG TAB PO (08:41)
[2018-04-02] MEDS: BENAZEPRIL 20 MG TAB PO (08:42)
[2018-04-02] MEDS: BISOPROLOL FUMARATE 10 MG TAB PO (08:42)
[2018-04-02] MEDS: FOLIC ACID 1 MG TAB PO (08:43)
[2018-04-02] MEDS: busPIRone 5 MG TAB PO ×2 (08:43→21:26)
[2018-04-02] MEDS: MULTIVITAMINS/MINERALS THERAP 1 TAB PO (08:43)
[2018-04-02] MEDS: NS 1,000 ML IV (08:44)
[2018-04-02] MEDS: FUROSEMIDE 40 MG/4 ML VIAL (J1940) IV ×2 (10:48→18:40)
[2018-04-02 11:11] LABS: CK-MB VALUE MASS 1.3 NG/ML (<3.6); CPK CREATINE PHOSPHOKINASE 16 U/L (26-192); MB/CK RELATIVE INDEX 8.12 (< OR =4); TROPONIN I < 0.02 NG/ML (< 0.10)
[2018-04-02 11:23] LABS: BEDSIDE GLUCOSE 151 MG/DL (70-105)
[2018-04-02 11:23] LABS: NT-PRO BNP 30776 PG/ML (<125)
[2018-04-02 17:14] LABS: BEDSIDE GLUCOSE 148 MG/DL (70-105)
[2018-04-02] MEDS: predniSONE 20 MG TAB PO (21:26)
[2018-04-03] MEDS: MEROPENEM INJ 1 GM in APPROPRIATE DILUENT 1 EA IV ×4 (00:05→23:46)
[2018-04-03] MEDS: OXAZEPAM 15 MG CAP PO ×2 (02:00→07:48)
[2018-04-03] MEDS: IPRATROPIUM 0.5MG/ALBUTEROL 2.5MG INH SOL UD 3ML (DUONEB)(J7620) NEB ×6 (03:57→23:53)
[2018-04-03] MEDS: HEPARIN SOD (PORCINE) 5000 UNITS/ML VIAL SQ ×3 (05:07→20:27)
[2018-04-03] MEDS: SLF 3 ML SYR IV ×3 (05:07→20:26)
[2018-04-03 05:24] LABS: BASO % 0.1 % (0.0-1.0); HEMATOCRIT 25.7 % (36.0-47.0); HEMOGLOBIN 8.6 g/dl (12.0-15.5); IMMATURE GRANULOCYTE % 1.3 % (0-3.0); LYMPH # 0.4 10^3/uL (1.5-4.5); LYMPH % 4.9 % (24.0-44.0); MEAN CORPUSCULAR HEMOGLOBIN 36.6 pg (27.0-33.0); MEAN CORPUSCULAR HGB CONC 33.5 g/dl (32.0-36.5); MEAN CORPUSCULAR VOLUME 109.4 fl (80.0-96.0); MONO # 0.7 10^3/uL (0.0-0.8); MONO % 7.2 % (0.0-5.0); NEUTROPHILS # 7.8 10^3/uL (1.8-7.7); NEUTROPHILS % 86.5 % (36.0-66.0); PLATELET COUNT, AUTOMATED 324 10^3/uL (150-450); RED BLOOD COUNT 2.35 10^6/uL (4.00-5.40)
[2018-04-03 05:41] LABS: ALBUMIN 2.3 GM/DL (3.2-5.2); ALKALINE PHOSPHATASE 151 U/L (45-117); ALT/SGPT 42 U/L (12-78); ANION GAP 8 MEQ/L (8-16); AST/SGOT 66 U/L (7-37); BILIRUBIN,TOTAL 0.6 MG/DL (0.2-1.0); BLOOD UREA NITROGEN 11 MG/DL (7-18); CALCIUM LEVEL 8.1 MG/DL (8.5-10.1); CARBON DIOXIDE LEVEL 31 MEQ/L (21-32); CHLORIDE LEVEL 103 MEQ/L (98-107); CREATININE FOR GFR 0.44 MG/DL (0.55-1.30); GLOMERULAR FILTRATION RATE > 60.0 (>51); GLUCOSE, FASTING 150 MG/DL (70-100); LIPASE 333 U/L (73-393); MAGNESIUM LEVEL 1.2 MG/DL (1.8-2.4); POTASSIUM SERUM 3.3 MEQ/L (3.5-5.1); SODIUM LEVEL 142 MEQ/L (136-145); TOTAL PROTEIN 5.6 GM/DL (6.4-8.2)
[2018-04-03] MEDS: MAG SULF 1GM/100ML (MAG RUN) 1 GM in APPROPRIATE DILUENT 1 EA IV ×2 (06:19→07:48)
[2018-04-03] MEDS: POTASSIUM CHLORIDE 10 MEQ SR TABLET PO (06:20)
[2018-04-03] MEDS: FUROSEMIDE 20 MG/2 ML VIAL (J1940) IV ×4 (06:55→23:47)
[2018-04-03 07:21] LABS: AMMONIA 39 uMOL/L (<32)
[2018-04-03] MEDS: FOLIC ACID 1 MG TAB PO (07:48)
[2018-04-03] MEDS: predniSONE 20 MG TAB PO ×2 (07:49→20:26)
[2018-04-03] MEDS: BENAZEPRIL 20 MG TAB PO (07:49)
[2018-04-03] MEDS: THIAMINE 100 MG TAB PO (07:49)
[2018-04-03] MEDS: BISOPROLOL FUMARATE 10 MG TAB PO (07:49)
[2018-04-03] MEDS: busPIRone 5 MG TAB PO ×2 (07:49→20:26)
[2018-04-03] MEDS: PANTOPRAZOLE 40MG INJ (PROTONIX) (C9113) IV ×2 (07:50→20:26)
[2018-04-03] MEDS: MULTIVITAMINS/MINERALS THERAP 1 TAB PO (07:50)
[2018-04-03] MEDS: NICOTINE 14 MG/24 HR TRANSDERMAL TD (07:50)
[2018-04-03] MEDS ORDERED: FUROSEMIDE 40 MG/4 ML VIAL (J1940) IV (09:00)
[2018-04-03] MEDS: ACETAMINOPHEN TAB 650MG DOSE (2X325MG) PO (09:30)
[2018-04-03] MEDS ORDERED: ANALGESIC BALM CRM 120 GM TOP (10:00)
[2018-04-03 12:22] LABS: POTASSIUM SERUM 3.6 MEQ/L (3.5-5.1)
[2018-04-03 20:22] LABS: BEDSIDE GLUCOSE 173 MG/DL (70-105)
[2018-04-03] MEDS: OXAZEPAM 10 MG CAP PO (20:26)
[2018-04-03] MEDS: PROMETHAZINE INJ 25 MG/ML VIAL (J2550) IV (23:47)
[2018-04-04] MEDS: IPRATROPIUM 0.5MG/ALBUTEROL 2.5MG INH SOL UD 3ML (DUONEB)(J7620) NEB ×6 (03:29→23:44)
[2018-04-04 05:31] LABS: HEMATOCRIT 26.1 % (36.0-47.0); IMMATURE GRANULOCYTE % 0.8 % (0-3.0); LYMPH # 0.6 10^3/uL (1.5-4.5); LYMPH % 7.3 % (24.0-44.0); MEAN CORPUSCULAR HGB CONC 34.5 g/dl (32.0-36.5); MEAN CORPUSCULAR VOLUME 107.4 fl (80.0-96.0); MONO % 10.8 % (0.0-5.0); NEUTROPHILS # 7.1 10^3/uL (1.8-7.7); NEUTROPHILS % 81.1 % (36.0-66.0); PLATELET COUNT, AUTOMATED 387 10^3/uL (150-450); RED BLOOD COUNT 2.43 10^6/uL (4.00-5.40); RED CELL DISTRIBUTION WIDTH 17.2 % (11.5-14.5); WHITE BLOOD COUNT 8.8 10^3/uL (4.0-10.0)
[2018-04-04] MEDS: HEPARIN SOD (PORCINE) 5000 UNITS/ML VIAL SQ ×3 (06:00→20:14)
[2018-04-04] MEDS: FUROSEMIDE 20 MG/2 ML VIAL (J1940) IV ×3 (06:00→18:25)
[2018-04-04] MEDS: SLF 3 ML SYR IV ×3 (06:00→20:15)
[2018-04-04 07:39] LABS: RETIC HEMOGLOBIN EQUIVALENT 39.3 pg (24-36); RETICULOCYTE # 124.6 10^9/L (17-77); RETICULOCYTE % 4.9 % (0.5-1.5)
[2018-04-04 08:06] LABS: AMYLASE 100 U/L (25-115)
[2018-04-04 08:06] LABS: LIPASE 471 U/L (73-393)
[2018-04-04 08:07] LABS: AMMONIA 33 uMOL/L (<32)
[2018-04-04 08:11] LABS: ALBUMIN 2.8 GM/DL (3.2-5.2); ALKALINE PHOSPHATASE 161 U/L (45-117); ALT/SGPT 58 U/L (12-78); ANION GAP 6 MEQ/L (8-16); AST/SGOT 81 U/L (7-37); BILIRUBIN,TOTAL 0.6 MG/DL (0.2-1.0); BLOOD UREA NITROGEN 11 MG/DL (7-18); CALCIUM LEVEL 8.9 MG/DL (8.5-10.1); CARBON DIOXIDE LEVEL 40 MEQ/L (21-32); CHLORIDE LEVEL 94 MEQ/L (98-107); CREATININE FOR GFR 0.48 MG/DL (0.55-1.30); GLOMERULAR FILTRATION RATE > 60.0 (>51); GLUCOSE, FASTING 121 MG/DL (70-100); POTASSIUM SERUM 3.4 MEQ/L (3.5-5.1); SODIUM LEVEL 140 MEQ/L (136-145); TOTAL PROTEIN 5.9 GM/DL (6.4-8.2)
[2018-04-04 08:13] LABS: FERRITIN 713 NG/ML (8-252); IRON (FE) 62 UG/DL (50-170); PERCENT SATURATION 40.8 % (13.2-45.0); TOTAL IRON BINDING CAPACITY 152 UG/DL (250-450)
[2018-04-04 08:13] LABS: MAGNESIUM LEVEL 1.4 MG/DL (1.8-2.4)
[2018-04-04] MEDS: PANTOPRAZOLE 40MG INJ (PROTONIX) (C9113) IV ×2 (08:47→20:14)
[2018-04-04] MEDS: MEROPENEM INJ 1 GM in APPROPRIATE DILUENT 1 EA IV ×2 (08:47→16:10)
[2018-04-04 08:48] LABS: SLIDE REVIEW Report; SOURCE PERIPHERAL SMEAR
[2018-04-04] MEDS: busPIRone 5 MG TAB PO ×2 (08:48→20:15)
[2018-04-04] MEDS: NICOTINE 14 MG/24 HR TRANSDERMAL TD (08:48)
[2018-04-04] MEDS: predniSONE 20 MG TAB PO ×2 (08:48→20:14)
[2018-04-04] MEDS: ONDANSETRON 4MG/2ML VIAL (J2405) IV ×2 (08:48→16:54)
[2018-04-04] MEDS: FOLIC ACID 1 MG TAB PO (08:48)
[2018-04-04 08:49] LABS: REASON FOR REVIEW ANEMIA / RBC MORPH
[2018-04-04] MEDS: MULTIVITAMINS/MINERALS THERAP 1 TAB PO (08:49)
[2018-04-04] MEDS: THIAMINE 100 MG TAB PO (08:49)
[2018-04-04 08:52] LABS: NT-PRO BNP 14307 PG/ML (<125)
[2018-04-04] MEDS: BENAZEPRIL 20 MG TAB PO (09:00)
[2018-04-04] MEDS: BISOPROLOL FUMARATE 10 MG TAB PO (09:00)
[2018-04-04] MEDS: GI COCKTAIL 50ML BTL(HYOSCYAMINE/MAALOX/LIDOCAINE VISCOUS)(1:3:1) PO (10:14)
[2018-04-04] MEDS: ACETAMINOPHEN TAB 650MG DOSE (2X325MG) PO (14:32)
[2018-04-04] MEDS: OXAZEPAM 10 MG CAP PO (20:15)
[2018-04-05] MEDS: MEROPENEM INJ 1 GM in APPROPRIATE DILUENT 1 EA IV ×3 (00:13→17:21)
[2018-04-05] MEDS: FUROSEMIDE 20 MG/2 ML VIAL (J1940) IV ×5 (00:13→23:49)
[2018-04-05] MEDS: IPRATROPIUM 0.5MG/ALBUTEROL 2.5MG INH SOL UD 3ML (DUONEB)(J7620) NEB ×6 (03:49→23:46)
[2018-04-05 05:10] LABS: HEMATOCRIT 27.1 % (36.0-47.0); HEMOGLOBIN 9.4 g/dl (12.0-15.5); MEAN CORPUSCULAR HEMOGLOBIN 36.9 pg (27.0-33.0); MEAN CORPUSCULAR HGB CONC 34.7 g/dl (32.0-36.5); MEAN CORPUSCULAR VOLUME 106.3 fl (80.0-96.0); PLATELET COUNT, AUTOMATED 434 10^3/uL (150-450); RED BLOOD COUNT 2.55 10^6/uL (4.00-5.40); RED CELL DISTRIBUTION WIDTH 17.2 % (11.5-14.5); WHITE BLOOD COUNT 10.8 10^3/uL (4.0-10.0)
[2018-04-05 05:13] LABS: ALBUMIN 2.6 GM/DL (3.2-5.2); ALBUMIN/GLOBULIN RATIO 0.76 (1.00-1.93); ALKALINE PHOSPHATASE 163 U/L (45-117); ALT/SGPT 65 U/L (12-78); ANION GAP 7 MEQ/L (8-16); AST/SGOT 75 U/L (7-37); BILIRUBIN,TOTAL 0.6 MG/DL (0.2-1.0); BLOOD UREA NITROGEN 12 MG/DL (7-18); CALCIUM LEVEL 8.7 MG/DL (8.5-10.1); CARBON DIOXIDE LEVEL 43 MEQ/L (21-32); CHLORIDE LEVEL 88 MEQ/L (98-107); CREATININE FOR GFR 0.55 MG/DL (0.55-1.30); GLOMERULAR FILTRATION RATE > 60.0 (>51); GLUCOSE, FASTING 142 MG/DL (70-100); POTASSIUM SERUM 3.4 MEQ/L (3.5-5.1); SODIUM LEVEL 138 MEQ/L (136-145)
[2018-04-05] MEDS: HEPARIN SOD (PORCINE) 5000 UNITS/ML VIAL SQ ×3 (05:24→21:23)
[2018-04-05] MEDS: SLF 3 ML SYR IV ×3 (05:24→21:30)
[2018-04-05] MEDS: MAG SULF 1GM/100ML (MAG RUN) 1 GM in APPROPRIATE DILUENT 1 EA IV (06:24)
[2018-04-05] MEDS: POTASSIUM CHLORIDE 10 MEQ SR TABLET PO (06:24)
[2018-04-05 06:25] LABS: MAGNESIUM LEVEL 1.3 MG/DL (1.8-2.4)
[2018-04-05] MEDS ORDERED: guaiFENesin DM LIQ 10ML UD PO (07:30)
[2018-04-05] MEDS: NICOTINE 14 MG/24 HR TRANSDERMAL TD (08:35)
[2018-04-05] MEDS: PANTOPRAZOLE 40MG INJ (PROTONIX) (C9113) IV ×2 (08:36→21:23)
[2018-04-05] MEDS: THIAMINE 100 MG TAB PO (08:37)
[2018-04-05] MEDS: BISOPROLOL FUMARATE 10 MG TAB PO (08:38)
[2018-04-05] MEDS: BENAZEPRIL 20 MG TAB PO (08:41)
[2018-04-05] MEDS: MULTIVITAMINS/MINERALS THERAP 1 TAB PO (08:41)
[2018-04-05] MEDS: busPIRone 5 MG TAB PO ×2 (08:41→21:23)
[2018-04-05] MEDS: predniSONE 20 MG TAB PO ×2 (08:42→21:23)
[2018-04-05] MEDS: FOLIC ACID 1 MG TAB PO (08:42)
[2018-04-05] MEDS: ONDANSETRON 4MG/2ML VIAL (J2405) IV (11:25)
[2018-04-05] MEDS: DOCUSATE SODIUM 100 MG CAP PO (11:26)
[2018-04-05] MEDS: ACETAMINOPHEN TAB 650MG DOSE (2X325MG) PO ×2 (12:33→17:21)
[2018-04-05] MEDS: OXAZEPAM 10 MG CAP PO (23:52)
[2018-04-06] MEDS: IPRATROPIUM 0.5MG/ALBUTEROL 2.5MG INH SOL UD 3ML (DUONEB)(J7620) NEB ×6 (03:11→23:24)
[2018-04-06 05:04] LABS: HEMATOCRIT 29.1 % (36.0-47.0); MEAN CORPUSCULAR HEMOGLOBIN 36.8 pg (27.0-33.0); MEAN CORPUSCULAR HGB CONC 34.4 g/dl (32.0-36.5); PLATELET COUNT, AUTOMATED 423 10^3/uL (150-450); RED BLOOD COUNT 2.72 10^6/uL (4.00-5.40); RED CELL DISTRIBUTION WIDTH 16.5 % (11.5-14.5); WHITE BLOOD COUNT 12.4 10^3/uL (4.0-10.0)
[2018-04-06 05:27] LABS: ALBUMIN 2.8 GM/DL (3.2-5.2); ALBUMIN/GLOBULIN RATIO 0.76 (1.00-1.93); ALKALINE PHOSPHATASE 175 U/L (45-117); ALT/SGPT 74 U/L (12-78); ANION GAP 9 MEQ/L (8-16); AST/SGOT 82 U/L (7-37); BILIRUBIN,TOTAL 0.6 MG/DL (0.2-1.0); BLOOD UREA NITROGEN 15 MG/DL (7-18); CARBON DIOXIDE LEVEL 44 MEQ/L (21-32); CHLORIDE LEVEL 85 MEQ/L (98-107); CREATININE FOR GFR 0.57 MG/DL (0.55-1.30); GLOMERULAR FILTRATION RATE > 60.0 (>51); GLUCOSE, FASTING 150 MG/DL (70-100); POTASSIUM SERUM 3.4 MEQ/L (3.5-5.1); SODIUM LEVEL 138 MEQ/L (136-145); TOTAL PROTEIN 6.5 GM/DL (6.4-8.2)
[2018-04-06] MEDS: SLF 3 ML SYR IV ×3 (06:20→21:08)
[2018-04-06] MEDS: HEPARIN SOD (PORCINE) 5000 UNITS/ML VIAL SQ ×3 (06:20→21:04)
[2018-04-06] MEDS: FUROSEMIDE 20 MG/2 ML VIAL (J1940) IV (06:20)
[2018-04-06 07:01] LABS: MAGNESIUM LEVEL 1.6 MG/DL (1.8-2.4)
[2018-04-06] MEDS: NICOTINE 14 MG/24 HR TRANSDERMAL TD (08:47)
[2018-04-06] MEDS: THIAMINE 100 MG TAB PO (08:48)
[2018-04-06] MEDS: POTASSIUM CHLORIDE 10 MEQ SR TABLET PO (08:48)
[2018-04-06] MEDS: SPIRONOLACTONE 25 MG TAB PO ×2 (08:49→17:02)
[2018-04-06] MEDS: MULTIVITAMINS/MINERALS THERAP 1 TAB PO (08:49)
[2018-04-06] MEDS: PANTOPRAZOLE 40MG TAB (PROTONIX) PO ×2 (08:49→21:04)
[2018-04-06] MEDS: FOLIC ACID 1 MG TAB PO (08:49)
[2018-04-06] MEDS: MAG SULF 1GM/100ML (MAG RUN) 1 GM in APPROPRIATE DILUENT 1 EA IV (08:49)
[2018-04-06] MEDS: FUROSEMIDE 40 MG TAB PO ×2 (08:49→17:02)
[2018-04-06] MEDS: busPIRone 5 MG TAB PO ×2 (08:49→21:04)
[2018-04-06] MEDS: predniSONE 20 MG TAB PO ×2 (08:49→21:04)
[2018-04-06] MEDS: BENAZEPRIL 5 MG TAB PO (08:50)
[2018-04-06] MEDS: BISOPROLOL FUMARATE 10 MG TAB PO (08:50)
[2018-04-06] MEDS: GI COCKTAIL 50ML BTL(HYOSCYAMINE/MAALOX/LIDOCAINE VISCOUS)(1:3:1) PO ×2 (11:50→18:32)
[2018-04-06 18:58] LABS: MAGNESIUM LEVEL 1.9 MG/DL (1.8-2.4)
[2018-04-06] MEDS: ACETAMINOPHEN TAB 650MG DOSE (2X325MG) PO (21:08)
[2018-04-06] MEDS: OXAZEPAM 10 MG CAP PO (23:50)
[2018-04-07] MEDS: IPRATROPIUM 0.5MG/ALBUTEROL 2.5MG INH SOL UD 3ML (DUONEB)(J7620) NEB ×6 (04:00→23:59)
[2018-04-07] MEDS: HEPARIN SOD (PORCINE) 5000 UNITS/ML VIAL SQ ×3 (05:48→20:12)
[2018-04-07] MEDS: ACETAMINOPHEN TAB 650MG DOSE (2X325MG) PO ×2 (05:49→15:49)
[2018-04-07] MEDS: SLF 3 ML SYR IV ×3 (05:49→20:13)
[2018-04-07 06:49] LABS: HEMATOCRIT 30.4 % (36.0-47.0); HEMOGLOBIN 10.5 g/dl (12.0-15.5); MEAN CORPUSCULAR HEMOGLOBIN 37.4 pg (27.0-33.0); MEAN CORPUSCULAR HGB CONC 34.5 g/dl (32.0-36.5); MEAN CORPUSCULAR VOLUME 108.2 fl (80.0-96.0); PLATELET COUNT, AUTOMATED 426 10^3/uL (150-450); RED BLOOD COUNT 2.81 10^6/uL (4.00-5.40); RED CELL DISTRIBUTION WIDTH 16.1 % (11.5-14.5); WHITE BLOOD COUNT 13.1 10^3/uL (4.0-10.0)
[2018-04-07 07:17] LABS: ALBUMIN 2.8 GM/DL (3.2-5.2); ALBUMIN/GLOBULIN RATIO 0.76 (1.00-1.93); ALKALINE PHOSPHATASE 182 U/L (45-117); ALT/SGPT 84 U/L (12-78); ANION GAP 6 MEQ/L (8-16); AST/SGOT 88 U/L (7-37); BILIRUBIN,TOTAL 0.6 MG/DL (0.2-1.0); BLOOD UREA NITROGEN 17 MG/DL (7-18); CALCIUM LEVEL 9.2 MG/DL (8.5-10.1); CARBON DIOXIDE LEVEL 39 MEQ/L (21-32); CHLORIDE LEVEL 91 MEQ/L (98-107); CREATININE FOR GFR 0.66 MG/DL (0.55-1.30); GLOMERULAR FILTRATION RATE > 60.0 (>51); GLUCOSE, FASTING 128 MG/DL (70-100); POTASSIUM SERUM 3.9 MEQ/L (3.5-5.1); SODIUM LEVEL 136 MEQ/L (136-145); TOTAL PROTEIN 6.5 GM/DL (6.4-8.2)
[2018-04-07 07:56] LABS: MAGNESIUM LEVEL 1.9 MG/DL (1.8-2.4); NT-PRO BNP 2157 PG/ML (<125)
[2018-04-07] MEDS: NICOTINE 14 MG/24 HR TRANSDERMAL TD (10:11)
[2018-04-07] MEDS: BISOPROLOL FUMARATE 10 MG TAB PO (10:12)
[2018-04-07] MEDS: PANTOPRAZOLE 40MG TAB (PROTONIX) PO ×2 (10:13→20:12)
[2018-04-07] MEDS: MULTIVITAMINS/MINERALS THERAP 1 TAB PO (10:13)
[2018-04-07] MEDS: FUROSEMIDE 20 MG/2 ML VIAL (J1940) IV (10:14)
[2018-04-07] MEDS: THIAMINE 100 MG TAB PO (10:14)
[2018-04-07] MEDS: FOLIC ACID 1 MG TAB PO (10:14)
[2018-04-07] MEDS: busPIRone 5 MG TAB PO ×2 (10:14→20:12)
[2018-04-07] MEDS: OXAZEPAM 10 MG CAP PO (22:05)
[2018-04-08] MEDS: IPRATROPIUM 0.5MG/ALBUTEROL 2.5MG INH SOL UD 3ML (DUONEB)(J7620) NEB ×6 (03:16→23:54)
[2018-04-08] MEDS: SLF 3 ML SYR IV ×3 (05:57→21:52)
[2018-04-08] MEDS: HEPARIN SOD (PORCINE) 5000 UNITS/ML VIAL SQ ×3 (05:57→21:51)
[2018-04-08 07:46] LABS: HEMOGLOBIN 10.5 g/dl (12.0-15.5); MEAN CORPUSCULAR VOLUME 105.6 fl (80.0-96.0); PLATELET COUNT, AUTOMATED 353 10^3/uL (150-450); RED BLOOD COUNT 2.84 10^6/uL (4.00-5.40); RED CELL DISTRIBUTION WIDTH 15.4 % (11.5-14.5); WHITE BLOOD COUNT 13.2 10^3/uL (4.0-10.0)
[2018-04-08 08:15] LABS: ALBUMIN 2.7 GM/DL (3.2-5.2); ALBUMIN/GLOBULIN RATIO 0.79 (1.00-1.93); ALKALINE PHOSPHATASE 177 U/L (45-117); ALT/SGPT 115 U/L (12-78); ANION GAP 6 MEQ/L (8-16); AST/SGOT 181 U/L (7-37); BILIRUBIN,TOTAL 0.7 MG/DL (0.2-1.0); BLOOD UREA NITROGEN 16 MG/DL (7-18); CALCIUM LEVEL 9.2 MG/DL (8.5-10.1); CARBON DIOXIDE LEVEL 33 MEQ/L (21-32); CHLORIDE LEVEL 95 MEQ/L (98-107); CREATININE FOR GFR 0.51 MG/DL (0.55-1.30); GLOMERULAR FILTRATION RATE > 60.0 (>51); GLUCOSE, FASTING 97 MG/DL (70-100); POTASSIUM SERUM 3.3 MEQ/L (3.5-5.1); SODIUM LEVEL 134 MEQ/L (136-145); TOTAL PROTEIN 6.1 GM/DL (6.4-8.2)
[2018-04-08] MEDS: BISOPROLOL FUMARATE 10 MG TAB PO (09:00)
[2018-04-08] MEDS: MULTIVITAMINS/MINERALS THERAP 1 TAB PO (09:33)
[2018-04-08] MEDS: FOLIC ACID 1 MG TAB PO (09:33)
[2018-04-08] MEDS: PANTOPRAZOLE 40MG TAB (PROTONIX) PO ×2 (09:33→21:52)
[2018-04-08] MEDS: NICOTINE 14 MG/24 HR TRANSDERMAL TD (09:33)
[2018-04-08] MEDS: busPIRone 5 MG TAB PO ×2 (09:34→21:52)
[2018-04-08] MEDS: THIAMINE 100 MG TAB PO (09:34)
[2018-04-08] MEDS: ACETAMINOPHEN TAB 650MG DOSE (2X325MG) PO ×2 (09:44→21:58)
[2018-04-08] MEDS: OXAZEPAM 10 MG CAP PO ×2 (12:14→21:52)
[2018-04-08] MEDS: POTASSIUM CHLORIDE 10 MEQ SR TABLET PO (23:08)
[2018-04-09] MEDS: IPRATROPIUM 0.5MG/ALBUTEROL 2.5MG INH SOL UD 3ML (DUONEB)(J7620) NEB ×5 (04:00→20:54)
[2018-04-09] MEDS: SLF 3 ML SYR IV ×3 (05:44→21:18)
[2018-04-09] MEDS: HEPARIN SOD (PORCINE) 5000 UNITS/ML VIAL SQ ×3 (05:44→21:18)
[2018-04-09 06:26] LABS: HEMOGLOBIN 10.2 g/dl (12.0-15.5); MEAN CORPUSCULAR HEMOGLOBIN 36.3 pg (27.0-33.0); MEAN CORPUSCULAR VOLUME 106.8 fl (80.0-96.0); PLATELET COUNT, AUTOMATED 278 10^3/uL (150-450); RED BLOOD COUNT 2.81 10^6/uL (4.00-5.40); RED CELL DISTRIBUTION WIDTH 15.1 % (11.5-14.5); WHITE BLOOD COUNT 10.3 10^3/uL (4.0-10.0)
[2018-04-09 07:02] LABS: ALBUMIN 2.6 GM/DL (3.2-5.2); ALBUMIN/GLOBULIN RATIO 0.76 (1.00-1.93); ALKALINE PHOSPHATASE 162 U/L (45-117); ALT/SGPT 93 U/L (12-78); AMYLASE 71 U/L (25-115); ANION GAP 11 MEQ/L (8-16); AST/SGOT 93 U/L (7-37); BILIRUBIN,TOTAL 0.6 MG/DL (0.2-1.0); BLOOD UREA NITROGEN 12 MG/DL (7-18); CALCIUM LEVEL 8.9 MG/DL (8.5-10.1); CARBON DIOXIDE LEVEL 29 MEQ/L (21-32); CHLORIDE LEVEL 99 MEQ/L (98-107); CREATININE FOR GFR 0.45 MG/DL (0.55-1.30); GLOMERULAR FILTRATION RATE > 60.0 (>51); GLUCOSE, FASTING 109 MG/DL (70-100); LIPASE 466 U/L (73-393); POTASSIUM SERUM 3.7 MEQ/L (3.5-5.1); SODIUM LEVEL 139 MEQ/L (136-145)
[2018-04-09] MEDS: predniSONE 20 MG TAB PO ×2 (09:08→21:18)
[2018-04-09] MEDS: PANTOPRAZOLE 40MG TAB (PROTONIX) PO ×2 (09:08→21:18)
[2018-04-09] MEDS: NICOTINE 14 MG/24 HR TRANSDERMAL TD (09:08)
[2018-04-09] MEDS: FOLIC ACID 1 MG TAB PO (09:08)
[2018-04-09] MEDS: busPIRone 5 MG TAB PO ×2 (09:08→21:18)
[2018-04-09] MEDS: THIAMINE 100 MG TAB PO (09:08)
[2018-04-09] MEDS: BISOPROLOL FUMARATE 10 MG TAB PO (09:09)
[2018-04-09] MEDS: MULTIVITAMINS/MINERALS THERAP 1 TAB PO (09:09)
[2018-04-09 10:18] LABS: "\\\"INSULIN \\\"\\\"PRO\\\"\\\" LEVEL\\\"" 1.4 pmol/L (0.0-10.0)
[2018-04-09 10:18] LABS: ACETOHEXAMIDE Negative ug/mL (20-60); CHLORPROPAMIDE Negative ug/mL (75-250); GLIMEPIRIDE Negative ng/mL (80-250); GLIPIZIDE Negative ng/mL (200-1000); GLYBURIDE Negative ng/mL (UP TO 1500); NATEGLINIDE Negative ng/mL (UP TO 10000); REPAGLINIDE Negative ng/mL (UP TO 200); TOLAZAMIDE Negative ug/mL (UP TO 80); TOLBUTAMIDE Negative ug/mL (40-100)
[2018-04-09] MEDS: OXAZEPAM 10 MG CAP PO ×2 (14:36→21:18)
[2018-04-10] MEDS: SLF 3 ML SYR IV ×3 (06:00→20:58)
[2018-04-10] MEDS: HEPARIN SOD (PORCINE) 5000 UNITS/ML VIAL SQ ×3 (06:30→20:57)
[2018-04-10 07:49] LABS: HEMATOCRIT 30.5 % (36.0-47.0); HEMOGLOBIN 10.4 g/dl (12.0-15.5); MEAN CORPUSCULAR HEMOGLOBIN 36.6 pg (27.0-33.0); MEAN CORPUSCULAR HGB CONC 34.1 g/dl (32.0-36.5); MEAN CORPUSCULAR VOLUME 107.4 fl (80.0-96.0); PLATELET COUNT, AUTOMATED 283 10^3/uL (150-450); RED BLOOD COUNT 2.84 10^6/uL (4.00-5.40); RED CELL DISTRIBUTION WIDTH 14.6 % (11.5-14.5); WHITE BLOOD COUNT 12.9 10^3/uL (4.0-10.0)
[2018-04-10 07:58] LABS: ALBUMIN 2.8 GM/DL (3.2-5.2); ALBUMIN/GLOBULIN RATIO 0.74 (1.00-1.93); ALKALINE PHOSPHATASE 155 U/L (45-117); ALT/SGPT 77 U/L (12-78); ANION GAP 8 MEQ/L (8-16); AST/SGOT 43 U/L (7-37); BILIRUBIN,TOTAL 0.4 MG/DL (0.2-1.0); BLOOD UREA NITROGEN 12 MG/DL (7-18); CARBON DIOXIDE LEVEL 26 MEQ/L (21-32); CHLORIDE LEVEL 104 MEQ/L (98-107); CREATININE FOR GFR 0.55 MG/DL (0.55-1.30); GLOMERULAR FILTRATION RATE > 60.0 (>51); GLUCOSE, FASTING 174 MG/DL (70-100); SODIUM LEVEL 138 MEQ/L (136-145); TOTAL PROTEIN 6.6 GM/DL (6.4-8.2)
[2018-04-10] MEDS: BISOPROLOL FUMARATE 10 MG TAB PO (09:00)
[2018-04-10] MEDS: NICOTINE 14 MG/24 HR TRANSDERMAL TD (09:09)
[2018-04-10] MEDS: FOLIC ACID 1 MG TAB PO (09:10)
[2018-04-10] MEDS: predniSONE 20 MG TAB PO ×2 (09:10→20:57)
[2018-04-10] MEDS: THIAMINE 100 MG TAB PO (09:10)
[2018-04-10] MEDS: busPIRone 5 MG TAB PO ×2 (09:10→20:57)
[2018-04-10] MEDS: MULTIVITAMINS/MINERALS THERAP 1 TAB PO (09:10)
[2018-04-10] MEDS: PANTOPRAZOLE 40MG TAB (PROTONIX) PO ×2 (09:10→20:57)
[2018-04-10] MEDS: IPRATROPIUM 0.5MG/ALBUTEROL 2.5MG INH SOL UD 3ML (DUONEB)(J7620) NEB ×5 (10:27→23:51)
[2018-04-10] MEDS: OXAZEPAM 10 MG CAP PO ×2 (14:48→23:27)
[2018-04-11] MEDS: IPRATROPIUM 0.5MG/ALBUTEROL 2.5MG INH SOL UD 3ML (DUONEB)(J7620) NEB ×4 (04:00→15:19)
[2018-04-11] MEDS: SLF 3 ML SYR IV (05:53)
[2018-04-11] MEDS: HEPARIN SOD (PORCINE) 5000 UNITS/ML VIAL SQ (05:54)
[2018-04-11 06:50] LABS: HEMOGLOBIN 10.3 g/dl (12.0-15.5); MEAN CORPUSCULAR HEMOGLOBIN 36.8 pg (27.0-33.0); MEAN CORPUSCULAR HGB CONC 34.3 g/dl (32.0-36.5); MEAN CORPUSCULAR VOLUME 107.1 fl (80.0-96.0); PLATELET COUNT, AUTOMATED 248 10^3/uL (150-450); RED CELL DISTRIBUTION WIDTH 14.3 % (11.5-14.5); WHITE BLOOD COUNT 11.2 10^3/uL (4.0-10.0)
[2018-04-11 07:03] LABS: ALBUMIN 2.6 GM/DL (3.2-5.2); ALBUMIN/GLOBULIN RATIO 0.74 (1.00-1.93); ALKALINE PHOSPHATASE 144 U/L (45-117); ALT/SGPT 65 U/L (12-78); ANION GAP 8 MEQ/L (8-16); AST/SGOT 43 U/L (7-37); BILIRUBIN,TOTAL 0.4 MG/DL (0.2-1.0); BLOOD UREA NITROGEN 11 MG/DL (7-18); CALCIUM LEVEL 8.8 MG/DL (8.5-10.1); CARBON DIOXIDE LEVEL 25 MEQ/L (21-32); CHLORIDE LEVEL 107 MEQ/L (98-107); GLOMERULAR FILTRATION RATE > 60.0 (>51); GLUCOSE, FASTING 132 MG/DL (70-100); POTASSIUM SERUM 3.8 MEQ/L (3.5-5.1); SODIUM LEVEL 140 MEQ/L (136-145); TOTAL PROTEIN 6.1 GM/DL (6.4-8.2)
[2018-04-11] MEDS: busPIRone 5 MG TAB PO (10:19)
[2018-04-11] MEDS: BISOPROLOL FUMARATE 10 MG TAB PO (10:19)
[2018-04-11] MEDS: PANTOPRAZOLE 40MG TAB (PROTONIX) PO (10:19)
[2018-04-11] MEDS: predniSONE 20 MG TAB PO (10:20)
[2018-04-11] MEDS: FOLIC ACID 1 MG TAB PO (10:20)
[2018-04-11] MEDS: MULTIVITAMINS/MINERALS THERAP 1 TAB PO (10:20)
[2018-04-11] MEDS: THIAMINE 100 MG TAB PO (10:20)
[2018-04-11] MEDS: NICOTINE 14 MG/24 HR TRANSDERMAL TD (10:21)
== END 2018-04-11 16:00 | disposition home health service (06) | DRG 282 ==
LOC: M ICU 03-30 09:20 → M MS5PR 04-06 23:53 → M MSPAV 03-29 16:31 → M ED 10:25 → M ED INP 16:42 → M PCU 21:30
PROVIDERS: Internal Medicine
DX: K85.20 Alcohol induced acute pancreatitis without necrosis or infection (principal); J96.00 Acute respiratory failure, unspecified whether with hypoxia or hypercapnia; I50.33 Acute on chronic diastolic (congestive) heart failure; J18.9 Pneumonia, unspecified organism; N17.9 Acute kidney failure, unspecified; E87.2 Acidosis; I42.6 Alcoholic cardiomyopathy; E83.51 Hypocalcemia; I11.0 Hypertensive heart disease with heart failure; J44.1 Chronic obstructive pulmonary disease with (acute) exacerbation; E87.1 Hypo-osmolality and hyponatremia; F10.10 Alcohol abuse, uncomplicated; D64.9 Anemia, unspecified; F17.200 Nicotine dependence, unspecified, uncomplicated; K21.9 Gastro-esophageal reflux disease without esophagitis; F41.9 Anxiety disorder, unspecified; Z79.899 Other long term (current) drug therapy; E16.2 Hypoglycemia, unspecified; D72.829 Elevated white blood cell count, unspecified; F10.232 Alcohol dependence with withdrawal with perceptual disturbance; E87.6 Hypokalemia; K80.20 Calculus of gallbladder without cholecystitis without obstruction

== ENCOUNTER 2019-01-24 22:24 | Emergency (ER) | payer OTHER ==
[~2019-01-24] VITALS: Ht 165.1 cm; Wt 58.6 kg
[~2019-01-24 22:24] MED LIST: ALPR0.5T3 PO; AZEL1SPR3; BENA40TA7 PO; BISO10TA6 PO; BUSP5TA PO; DOCU100T8 PO; FLUTISP; FOLI1TAB11 PO; HYDR1CAP25 PO; NICO14PA TD; OMEP40CA2 PO; PANT40TA3 PO; PRED10TA2 PO; THIA100T7 PO; THIA100TA PO; VITMTA PO
[2019-01-24] MEDS ORDERED: BENA20TA8 (22:42)
[2019-01-24] MEDS ORDERED: ROPI0.253 (22:42)
[2019-01-24] MEDS ORDERED: FLECAINIDE 50MG TABLET PO ONE (22:45)
[2019-01-24 23:17] LABS: HEMATOCRIT 46.8 % (36.0-47.0); HEMOGLOBIN 15.7 g/dl (12.0-15.5); MEAN CORPUSCULAR HEMOGLOBIN 29.6 pg (27.0-33.0); MEAN CORPUSCULAR HGB CONC 33.5 g/dl (32.0-36.5); MEAN CORPUSCULAR VOLUME 88.1 fl (80.0-96.0); PLATELET COUNT, AUTOMATED 302 10^3/uL (150-450); RED BLOOD COUNT 5.31 10^6/uL (4.00-5.40)
[2019-01-24 23:23] LABS: WHITE BLOOD COUNT 15.7 10^3/uL (4.0-10.0)
[2019-01-24 23:33] VITALS: BP 112/77
[2019-01-24 23:44] LABS: ATYPICAL LYMPH 3 % (0-5); BASOPHILS 2 % (0-4); EOSINOPHILS 9 % (0-5); LYMPHOCYTES 35 % (16-52); MONOCYTES 4 % (0-8); NEUTROPHILS 47 % (35-75)
[2019-01-24 23:45] LABS: GIANT PLATELETS 1+; PLATELET ESTIMATE NORMAL (NORMAL)
[2019-01-24 23:49] LABS: BLOOD UREA NITROGEN 18 MG/DL (7-18); CARBON DIOXIDE LEVEL 23 MEQ/L (21-32); CHLORIDE LEVEL 103 MEQ/L (98-107); FREE THYROXINE INDEX 4.1 % (1.3-4.8); GLOMERULAR FILTRATION RATE > 60.0 (>51); GLUCOSE, FASTING 130 MG/DL (70-100); POTASSIUM SERUM 4.1 MEQ/L (3.5-5.1); SODIUM LEVEL 137 MEQ/L (136-145); T UPTAKE 35 % (30-39); THYROXINE (T4) 11.6 UG/DL (4.5-12.0)
[2019-01-25] MEDS ORDERED: FLEC50HA PO (00:33)
[2019-01-25 00:38] VITALS: BP 100/75
--- NOTE | 2019-01-25 07:38 | ECGEPIP ---
Stationary ECG Study 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
--- NOTE | 2019-01-25 07:41 | ECGEPIP ---
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
== END 2019-01-25 00:44 | disposition home or self-care (01) ==
LOC: M ED 22:24
DX: I48.0 Paroxysmal atrial fibrillation (principal); R00.0 Tachycardia, unspecified; R94.31 Abnormal electrocardiogram [ECG] [EKG]; I44.0 Atrioventricular block, first degree; I44.5 Left posterior fascicular block; I10 Essential (primary) hypertension; K21.9 Gastro-esophageal reflux disease without esophagitis; J44.9 Chronic obstructive pulmonary disease, unspecified; Z79.899 Other long term (current) drug therapy; Z88.5 Allergy status to narcotic agent

== ENCOUNTER → 2019-02-04 | Outpatient (REF) | payer OTHER ==
[~2019-02-04] MED LIST changes: +BENA20TA8; +FLEC50HA PO; +ROPI0.253
[2019-02-04 19:09] LABS: APPEARANCE, URINE CLEAR (CLEAR); BACTERIA, URINE AUTO NEGATIVE (NEGATIVE); BILIRUBIN, URINE AUTO NEGATIVE (NEGATIVE); BLOOD, URINE BLOOD NEGATIVE (NEGATIVE); COLOR, URINE YELLOW (YELLOW); GLUCOSE, URINE (UA) AUTO NEGATIVE (NEGATIVE); KETONE, URINE AUTO NEGATIVE (NEGATIVE); LEUKOCYTE ESTERASE, URINE AUTO NEGATIVE (NEGATIVE); NITRITE, URINE AUTO NEGATIVE (NEGATIVE); PROTEIN, URINE AUTO NEGATIVE (NEGATIVE); RBC, URINE AUTO 0 /HPF (0-3); SPECIFIC GRAVITY URINE AUTO 1.004 (1.002-1.035); SQUAMOUS EPITHELIAL CELL UR AU 0 /HPF (0-6); UROBILINOGEN, URINE AUTO 0.2 mg/dL (0.0-2.0); WBC, URINE AUTO 0 /HPF (0-3)
== END ==
LOC: M SMT 17:11
PROVIDERS: ATTEND Nurse Practitioner Family
DX: Z80.52 Family history of malignant neoplasm of bladder (principal)

== ENCOUNTER → 2019-04-09 | Outpatient (REF) ==
[2019-04-10 10:11] LABS: RUBEOLA IgG ANTIBODY 59.3 AU/mL (Immune >29.9)
== END ==
LOC: M LAB 13:01
PROVIDERS: ATTEND Nurse Practitioner Adult Health
DX: Z02.89 Encounter for other administrative examinations (principal)

== ENCOUNTER → 2020-04-15 | Outpatient (CLI) | payer OTHER ==
[~2020-04-15] MED LIST changes: +ACET-897 PO; +BEANTAB8 PO; +BENA40TA5 PO; -BENA40TA7 PO; +BISO10TA14 PO; -BISO10TA6 PO; +FLUT1INH3 INH; +INCR1INH INH; -OMEP40CA2 PO; +OMEP40CA97 PO; +PANT20TA6 PO; +PANT40TA29 PO; -PANT40TA3 PO
--- NOTE | 2020-04-15 10:14 | REPPI ---
CHEST X-RAY: Two views. HISTORY: COPD. COMPARISON CHEST X-RAY: March 27, 2019. FINDINGS: The lungs are somewhat hyperinflated but clear. Heart size is borderline. Cardiothoracic ratio measures 49.0%. The thoracic aorta somewhat tortuous. There are degenerative changes in the thoracic spine. Pulmonary vasculature is not increased. IMPRESSION: Hyperinflation. Borderline heart size. Otherwise no acute disease. Electronically Signed by Lokesh Asencio MD 04/15/2020 10:35 A
== END ==
LOC: M PLAIMG 09:28
PROVIDERS: ATTEND Nurse Practitioner Family
DX: J44.9 Chronic obstructive pulmonary disease, unspecified (principal)

== ENCOUNTER → 2020-05-12 | Outpatient (CLI) | payer OTHER ==
[~2020-05-12] MED LIST changes: +E-Z-GAS II EFFERVESCENT PACKET (SODIUM BICARB./CITRIC ACID/SIMETHICONE) As Ordered ONE; +E-Z-HD 98% w/w 340GM SUSP BTL As Ordered ONE; +E-Z-PAQUE 96% w/w SUSP 176GM BTL As Ordered ONE
--- NOTE | 2020-05-12 16:51 | REP ---
Examination Requested: Esophagram Barium Swallow Reason For Exam/Comment: Dysphasia Esophagram: The procedure was performed JOSE Garza, under the direct supervision of Dr. Asencio. The images were reviewed with Dr. Asencio. A single PA chest x-ray is submitted as a human resources consultant film. The superior mediastinal structures are midline. The heart size is within normal limits. The lungs are clear. Liquid barium and gas producing granules were given in the erect position as well as liquid barium in the prone oblique position, in order to perform a double contrast esophagram examination. Oral and pharyngeal stages of the examination demonstrated flash laryngeal penetration. Esophageal transport is appears somewhat delayed, there is a small esophageal web and tertiary contractions were visualized. No evidence of esophagitis, stricture, or mucosal ring noted. There is no hiatal hernia noted. Gastroesophageal reflux was not visualized during the exam. Impression: 1. Delayed emptying of the esophagus with a small web and tertiary contractions. 2. Flash laryngeal penetration. 0.3 minutes of fluoroscopy time was utilized for this procedure. Some fluoroscopic images are performed with last image hold technology. These images require no additional radiation. Reviewed by JOSE Romero 05/12/2020 03:08 P Electronically Signed by Lokesh Asencio MD 05/12/2020 04:42 P
== END ==
LOC: M RAD 07:58
PROVIDERS: ATTEND Specialist
DX: R13.10 Dysphagia, unspecified (principal)

== ENCOUNTER → 2020-06-08 | Outpatient (CLI) | payer OTHER ==
[~2020-06-08] MED LIST changes: -E-Z-GAS II EFFERVESCENT PACKET (SODIUM BICARB./CITRIC ACID/SIMETHICONE) As Ordered ONE; -E-Z-HD 98% w/w 340GM SUSP BTL As Ordered ONE; -E-Z-PAQUE 96% w/w SUSP 176GM BTL As Ordered ONE
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
== END ==
LOC: M RAD 06:56
PROVIDERS: ATTEND Nurse Practitioner Family
DX: J44.9 Chronic obstructive pulmonary disease, unspecified (principal); F17.218 Nicotine dependence, cigarettes, with other nicotine-induced disorders; R91.8 Other nonspecific abnormal finding of lung field

== ENCOUNTER → 2020-08-20 | Outpatient (CLI) | payer OTHER ==
--- NOTE | 2020-08-20 11:21 | REP ---
INDICATION: EARLY SATIETY MAIN REG. COMPARISON: None. TECHNIQUE/RADIOTRACER AND DOSE: 1.06 mCi of technetium-99m sulfur colloid was ingested in two scrambled eggs and 6 ounces of water and sequential anterior and posterior images are acquired for an 89-minute imaging observation period. Regions of interest are drawn around the stomach to plot gastric emptying. FINDINGS: Expected T1/2 is 90 minutes. Sixty-eight% emptying is observed in this patient during the 89-minute imaging observation period, for a calculated T1/2 in this patient of 61 minutes. IMPRESSION: Normal gastric emptying. <Electronically signed by Jamie Asencio > 08/20/20 [id number]
== END ==
LOC: M RAD 09:08
PROVIDERS: ATTEND Internal Medicine Gastroenterology
DX: R68.81 Early satiety (principal)
CPT/HCPCS: 78264; A9541

== ENCOUNTER 2020-09-02 13:24 | Day surgery (SDC) | payer OTHER ==
[~2020-09-02] VITALS: Ht 165.1 cm; Wt 59.0 kg
[~2020-09-02 13:24] MED LIST changes: +NS 1,000 ML IV ONE
[2020-09-02] MEDS ORDERED: propofoL 200 MG/20 ML VIAL As Ordered ONE (15:38)
[2020-09-02] MEDS ORDERED: LIDOCAINE 2% 100MG/5ML SDV (FOR ANES.) As Ordered ONE (15:38)
--- NOTE | 2020-09-02 16:17 | ROOR ---
Patient Name: Aneta Alexis Procedure Date: 09/02/2020 3:55 PM Date of : 1960 Age: 60 Room: [facility] Gender: Female Note Status: Finalized Procedure: Upper GI endoscopy Indications: Dysphagia, Abnormal UGI series Providers: Everett MENDEZ MD Referring MD: REBECCA NAVARRO DO Requesting Provider: Medicines: Monitored Anesthesia Care Complications: No immediate complications. Procedure: Pre-Anesthesia Assessment: - The heart rate, respiratory rate, oxygen saturations, blood pressure, adequacy of pulmonary ventilation, and response to care were monitored throughout the procedure. The Endoscope was introduced through the mouth, and advanced to the second part of duodenum. The upper GI endoscopy was accomplished without difficulty. The patient tolerated the procedure well. Findings: A widely patent and non-obstructing Schatzki ring was found at the gastroesophageal junction. A TTS dilator was passed through the scope. Dilation with an 18-19-20 mm balloon dilator was performed to 20 mm. The dilation site was examined and showed complete resolution of luminal narrowing. The exam of the esophagus was otherwise normal. The entire examined stomach was normal. The examined duodenum was normal. Impression: - Widely patent and non-obstructing Schatzki ring at the GE junction. Dilated. - The esophagus is otherwise normal. I do not appreciate any proximal web or any stricture. - Normal stomach. - Normal examined duodenum. - No specimens collected. Recommendation: - Observe patient's clinical course. - I anticipate no further need for intervention. - Use a proton pump inhibitor PO BID. (for reflux related dyskinesia) Everett Mendez MD Everett MENDEZ MD 09/02/2020 4:17:31 PM Electronically signed by Everett MENDEZ MD Number of Addenda: 0 Note Initiated On: 09/02/2020 3:55 PM Estimated Blood Loss: Estimated blood loss: none.
[2020-09-02 16:30] VITALS: BP 184/103
== END 2020-09-02 16:44 | disposition home or self-care (01) ==
LOC: M OPP 13:24
PROVIDERS: ATTEND Internal Medicine Gastroenterology
DX: K22.2 Esophageal obstruction (principal); R13.10 Dysphagia, unspecified; R93.3 Abnormal findings on diagnostic imaging of other parts of digestive tract; I48.91 Unspecified atrial fibrillation; I10 Essential (primary) hypertension; J44.9 Chronic obstructive pulmonary disease, unspecified; F17.210 Nicotine dependence, cigarettes, uncomplicated; Z79.899 Other long term (current) drug therapy; Z88.5 Allergy status to narcotic agent

== ENCOUNTER 2021-01-21 10:17 | Emergency (ER) | payer OTHER ==
[~2021-01-21] VITALS: Ht 165.1 cm; Wt 60.7 kg
[~2021-01-21 10:17] MED LIST changes: -NS 1,000 ML IV ONE
[2021-01-21] MEDS ORDERED: CEPH500C (10:25)
[2021-01-21] MEDS ORDERED: ALBU83IN (10:25)
[2021-01-21] MEDS ORDERED: ALBU8.5H (10:25)
[2021-01-21] MEDS ORDERED: BREO1INH3 (10:25)
[2021-01-21] MEDS ORDERED: COMBIVENT RESPIMAT 100-20MCG INHALER 4GM INH STA (10:46)
--- NOTE | 2021-01-21 11:11 | REP ---
INDICATION: DYSPNEA/COUGH. COMPARISON: . TECHNIQUE: Upright PA and lateral chest. FINDINGS: The lung cantu are clear. Cardiac size is normal. The emeka, mediastinum and skeletal structures are unremarkable. IMPRESSION: Essentially negative PA and lateral chest There is no interval change. <Electronically signed by Balbir Rosales > 01/21/21 [id number]
[2021-01-21] MEDS ORDERED: COMBAER6 INH (11:32)
[2021-01-21] MEDS ORDERED: PRED20TA PO (11:32)
[2021-01-21 11:56] VITALS: BP 136/77
== END 2021-01-21 11:59 | disposition home or self-care (01) ==
LOC: M ED 10:17
DX: J44.1 Chronic obstructive pulmonary disease with (acute) exacerbation (principal); I10 Essential (primary) hypertension; K21.9 Gastro-esophageal reflux disease without esophagitis; K85.80 Other acute pancreatitis without necrosis or infection; F17.200 Nicotine dependence, unspecified, uncomplicated; Z88.5 Allergy status to narcotic agent; Z79.899 Other long term (current) drug therapy

== ENCOUNTER → 2021-04-15 | Outpatient (CLI) | payer OTHER ==
[~2021-04-15] MED LIST changes: +ALBU8.5H; +ALBU83IN; +BREO1INH3; +CEPH500C; +COMBAER6 INH; +OMEP40CA4 PO; -OMEP40CA97 PO; +PRED20TA PO
== END ==
LOC: M LABSMTC 11:54
DX: Z20.822 Contact with and (suspected) exposure to COVID-19 (principal)

== ENCOUNTER 2021-06-20 19:13 | Emergency (ER) | payer OTHER ==
[~2021-06-20] VITALS: Ht 165.1 cm; Wt 57.0 kg
[2021-06-20 19:13] VITALS: BP 140/83
[~2021-06-20 19:13] MED LIST changes: +BEANO150 UNIT PO; -BEANTAB8 PO; +BENA-8; -BENA20TA8; -BENA40TA5 PO; +BENA40TA84 PO
== END 2021-06-20 21:41 | disposition left against medical advice (07) ==
LOC: M ED 19:13
DX: Z53.21 Procedure and treatment not carried out due to patient leaving prior to being seen by health care provider (principal)

== ENCOUNTER → 2021-07-11 | Outpatient (CLI) | payer OTHER ==
[~2021-07-11] MED LIST changes: -BEANO150 UNIT PO; +BEANTAB8 PO; -BENA-8; +BENA20TA8; +BENA40TA5 PO; -BENA40TA84 PO
--- NOTE | 2021-07-11 13:58 | REP ---
INDICATION: NICOTINE DEPENDENCE. COMPARISON: Multiple the latest 06/08/2020 TECHNIQUE: Axial noncontrast images from the thoracic inlet to the upper abdomen using low-dose lung screening technique (LDCT). As per the protocol only lung window images were sent to the read station for interpretation FINDINGS: There are multiple stable pulmonary nodules. There are no new abnormal nodules, masses, or opacities. Grossly, the mediastinum and pulmonary emeka are unchanged. Grossly, the imaged upper abdomen and imaged osseous structures are unchanged. IMPRESSION: Stable CT findings. There are no new abnormal nodules. According to the revised Fleischner society criteria yearly CT screening is warranted. <Electronically signed by Rashel Leung > 07/11/21 [id number]
== END ==
LOC: M RAD 13:30
PROVIDERS: ATTEND Nurse Practitioner Family
DX: Z12.2 Encounter for screening for malignant neoplasm of respiratory organs (principal); F17.218 Nicotine dependence, cigarettes, with other nicotine-induced disorders

== ENCOUNTER → 2021-10-18 | Outpatient (REF) ==
[~2021-10-18] MED LIST changes: +BEANO150 UNIT PO; -BEANTAB8 PO; +BENA-8; -BENA20TA8; -BENA40TA5 PO; +BENA40TA84 PO
[2021-10-18 15:54] LABS: RSV AMPLIFICATION NEGATIVE (NEGATIVE)
== END ==
LOC: M EMP 14:49
PROVIDERS: ATTEND Family Medicine
DX: Z11.52 Encounter for screening for COVID-19 (principal)

== ENCOUNTER → 2021-10-21 | Outpatient (REF) ==
[~2021-10-21] MED LIST changes: -BEANO150 UNIT PO; -BENA-8; +BENA20TA8; +BENA40TA5 PO; -BENA40TA84 PO; +[UNRECOGNIZED DRUG - CODE] PO
[2021-10-21 12:55] LABS: RSV AMPLIFICATION NEGATIVE (NEGATIVE)
== END ==
LOC: M LABSMTC 10:39
PROVIDERS: ATTEND Family Medicine
DX: Z20.822 Contact with and (suspected) exposure to COVID-19 (principal)

== ENCOUNTER → 2022-03-09 | Outpatient (CLI) | payer OTHER ==
[~2022-03-09] MED LIST changes: +BEANO150 UNIT PO; +BENA-8; -BENA20TA8; -BENA40TA5 PO; +BENA40TA84 PO; -[UNRECOGNIZED DRUG - CODE] PO
== END ==
LOC: M LABSMTC 10:36
PROVIDERS: ATTEND Physician Assistant
DX: Z01.812 Encounter for preprocedural laboratory examination (principal); Z20.822 Contact with and (suspected) exposure to COVID-19; Z12.11 Encounter for screening for malignant neoplasm of colon

== ENCOUNTER → 2022-07-25 | Outpatient (CLI) | payer OTHER ==
[~2022-07-25] MED LIST changes: +ALBU2.5V10; -ALBU83IN
== END ==
LOC: M RAD 08:36
PROVIDERS: ATTEND Nurse Practitioner Family
DX: R91.8 Other nonspecific abnormal finding of lung field (principal); F17.218 Nicotine dependence, cigarettes, with other nicotine-induced disorders

== ENCOUNTER → 2022-08-18 | Outpatient (CLI) | payer OTHER | LOC: M RAD 07:24 | PROVIDERS: ATTEND Internal Medicine Gastroenterology | DX: K21.00 Gastro-esophageal reflux disease with esophagitis, without bleeding (principal) | CPT/HCPCS: 78264; A9541 ==

== ENCOUNTER → 2022-08-21 | Outpatient (CLI) | payer OTHER | LOC: M PLARAD 14:11 | PROVIDERS: ATTEND Nurse Practitioner Family | DX: R91.1 Solitary pulmonary nodule (principal); F17.218 Nicotine dependence, cigarettes, with other nicotine-induced disorders | CPT/HCPCS: 78815; A9552 ==

== ENCOUNTER → 2022-10-27 | Outpatient (CLI) | payer OTHER | LOC: M RAD 10:47 | PROVIDERS: ATTEND Nurse Practitioner Family | DX: J44.9 Chronic obstructive pulmonary disease, unspecified (principal); R91.1 Solitary pulmonary nodule ==

== ENCOUNTER → 2022-10-27 | Outpatient (CLI) | payer OTHER ==
[2022-10-27 12:09] LABS: ALBUMIN 3.9 G/DL (3.2-5.2); ALKALINE PHOSPHATASE 86 U/L (46-116); ALT/SGPT < 9 U/L (7.0-40); AST/SGOT 26 U/L (<34); BILIRUBIN,DIRECT 0.3 MG/DL (<0.4); BILIRUBIN,TOTAL 0.7 MG/DL (0.3-1.2); CHOLESTEROL LEVEL 167 MG/DL (<200); CHOLESTEROL RISK RATIO 2.02 (<5); HDL CHOLESTEROL 82.3 MG/DL (>40); LDL CHOLESTEROL 51.5 MG/DL (<100); NON-HDL-C 85 MG/DL; TOTAL PROTEIN 7.2 G/DL (5.7-8.2); TRIGLYCERIDES LEVEL 166 MG/DL (<150)
== END ==
LOC: M LAB 10:49
PROVIDERS: ATTEND Physician Assistant
DX: Z13.220 Encounter for screening for lipoid disorders (principal)

== ENCOUNTER 2022-12-30 16:09 | Inpatient (IN) | payer OTHER ==
[~2022-12-30] VITALS: Ht 165.1 cm; Wt 55.8 kg
[~2022-12-30 16:09] MED LIST changes: -ALBU8.5H; +ALBU8.5H PO; -BENA-8; +BENA-8 PO; -BREO1INH3; +BREO1INH3 PO; -ROPI0.253; +ROPI0.253 PO
[2022-12-30] MEDS ORDERED: MORPHINE 2 MG/ML 1ML VIAL IV PRN (16:45)
[2022-12-30] MEDS ORDERED: ONDANSETRON 4MG 2ML VIAL IV ONE (16:45)
[2022-12-30] MEDS ORDERED: NS 640 ML in IV 1 EA IV ONE (16:45)
[2022-12-30] MEDS ORDERED: NS 1,000 ML IV ONE (16:45)
[2022-12-30 17:05] LABS: BASO % 0.2 % (0.0-1.0); HEMATOCRIT 41.4 % (36.0-47.0); HEMOGLOBIN 14.5 g/dl (12.0-15.5); LYMPH # 0.8 10^3/uL (1.5-5.0); LYMPH % 4.5 % (24.0-44.0); MEAN CORPUSCULAR HEMOGLOBIN 34.9 pg (27.0-33.0); MEAN CORPUSCULAR VOLUME 99.5 fl (80.0-96.0); MONO # 0.9 10^3/uL (0.0-0.8); MONO % 4.6 % (2.0-8.0); NEUTROPHILS # 16.6 10^3/uL (1.5-8.5); NEUTROPHILS % 89.4 % (36.0-66.0); PLATELET COUNT, AUTOMATED 234 10^3/uL (150-450); RED BLOOD COUNT 4.16 10^6/uL (4.00-5.40); WHITE BLOOD COUNT 18.6 10^3/uL (4.0-10.0)
[2022-12-30] MEDS: HYDROMORPHONE HCL 0.5 MG/ 0.5 ML SYRINGE IV PRN ×3 (17:09→20:00)
[2022-12-30 17:20] LABS: INR 0.97; PROTHROMBIN TIME 13.1 SECONDS (12.5-14.5)
[2022-12-30 17:21] LABS: PARTIAL THROMBOPLASTIN TIME 25.4 SECONDS (24.8-34.2)
[2022-12-30] MEDS ORDERED: ISOVUE-370 76% 100ML VIAL As Ordered ONE (17:23)
[2022-12-30 17:29] LABS: CK-MB VALUE MASS < 1.0 NG/ML (<3.6)
[2022-12-30 17:30] LABS: CPK CREATINE PHOSPHOKINASE 37 U/L (34-145)
[2022-12-30 17:31] LABS: ALKALINE PHOSPHATASE 88 U/L (46-116); ALT/SGPT 23 U/L (7.0-40); AST/SGOT 50 U/L (<34); BILIRUBIN,DIRECT 0.4 MG/DL (<0.4); BLOOD UREA NITROGEN 25 MG/DL (9-23); CARBON DIOXIDE LEVEL 28 MMOL/L (20-31); CHLORIDE LEVEL 94 MMOL/L (98-107); CREATININE FOR GFR 0.67 MG/DL (0.55-1.30); GLOMERULAR FILTRATION RATE > 60.0 (>45); GLUCOSE, FASTING 131 MG/DL (74-106); POTASSIUM SERUM 3.6 MMOL/L (3.5-5.1); SODIUM LEVEL 131 MMOL/L (136-145); TOTAL PROTEIN 6.8 G/DL (5.7-8.2)
[2022-12-30 17:45] LABS: RSV AMPLIFICATION NEGATIVE (NEGATIVE)
[2022-12-30 18:09] LABS: LIPASE 1097 U/L (12-53)
[2022-12-30] MEDS ORDERED: PIPERACILLIN/TAZOBACTAM SOD 4.5 GM in D5W MINI-BAG PLUS 50 ML IV ONE (18:10)
[2022-12-30 18:40] LABS: CK-MB VALUE MASS < 1.0 NG/ML (<3.6)
[2022-12-30 18:41] LABS: CPK CREATINE PHOSPHOKINASE 27 U/L (34-145)
[2022-12-30] MEDS ORDERED: HYDROMORPHONE HCL 0.5 MG/ 0.5 ML SYRINGE IV PRN (21:00)
[2022-12-30 23:44] LABS: BASO % 0.2 % (0.0-1.0); EOS % 0.2 % (0.0-3.0); HEMATOCRIT 37.1 % (36.0-47.0); LYMPH # 1.4 10^3/uL (1.5-5.0); LYMPH % 10.6 % (24.0-44.0); MEAN CORPUSCULAR HEMOGLOBIN 35.1 pg (27.0-33.0); MEAN CORPUSCULAR VOLUME 100.3 fl (80.0-96.0); MONO # 0.8 10^3/uL (0.0-0.8); MONO % 5.7 % (2.0-8.0); NEUTROPHILS % 82.5 % (36.0-66.0); PLATELET COUNT, AUTOMATED 201 10^3/uL (150-450); WHITE BLOOD COUNT 13.3 10^3/uL (4.0-10.0)
[2022-12-31] MEDS: HYDROMORPHONE HCL 0.5 MG/ 0.5 ML SYRINGE IV PRN (00:21)
[2022-12-31 00:29] LABS: ALBUMIN 3.6 G/DL (3.2-5.2); ALKALINE PHOSPHATASE 80 U/L (46-116); ALT/SGPT 20 U/L (7.0-40); AST/SGOT 39 U/L (<34); BILIRUBIN,TOTAL 1.2 MG/DL (0.3-1.2); BLOOD UREA NITROGEN 18 MG/DL (9-23); CALCIUM LEVEL 8.1 MG/DL (8.3-10.6); CARBON DIOXIDE LEVEL 26 MMOL/L (20-31); CHLORIDE LEVEL 101 MMOL/L (98-107); CREATININE FOR GFR 0.66 MG/DL (0.55-1.30); GLOMERULAR FILTRATION RATE > 60.0 (>45); GLUCOSE, FASTING 107 MG/DL (74-106); POTASSIUM SERUM 3.2 MMOL/L (3.5-5.1); SODIUM LEVEL 135 MMOL/L (136-145)
[2022-12-31] MEDS ORDERED: FLUT1BLS17 PO (01:03)
[2022-12-31] MEDS ORDERED: ROSU10TA6 PO (01:06)
[2022-12-31] MEDS ORDERED: CHLO125TA PO (01:06)
[2022-12-31] MEDS ORDERED: MONT10TA97 PO (01:06)
[2022-12-31] MEDS ORDERED: PRED10TA2 PO (01:10)
[2022-12-31] MEDS ORDERED: AZIT-12 PO (01:10)
[2022-12-31] MEDS ORDERED: ASPI81TA26 PO (01:12)
[2022-12-31] MEDS ORDERED: HOME MED LIST COMPLETE! XX SCH (01:15)
[2022-12-31] MEDS ORDERED: LORazepam 2 MG TAB PO PRN (01:30)
[2022-12-31] MEDS ORDERED: KETOROLAC 30 MG/ML 1ML VIAL IV PRN (01:30)
[2022-12-31] MEDS ORDERED: NS 1,000 ML IV SCH (01:30)
[2022-12-31] MEDS: THIAMINE 100 MG TAB PO SCH ×3 (03:42→20:05)
[2022-12-31] MEDS: PANTOPRAZOLE 40MG VIAL IV SCH (03:42)
[2022-12-31] MEDS: ACETAMINOPHEN TAB 650MG DOSE (2X325MG) PO PRN ×3 (03:42→14:51)
[2022-12-31 04:00] VITALS: BP 137/47
[2022-12-31] MEDS: KCL 10MEQ/100ML SWI (KRUN) 10 MEQ in IV 1 EA IV SCH ×7 (04:00→22:26)
[2022-12-31] MEDS: PROMETHAZINE 25MG/ML 1ML VIAL IV PRN ×2 (04:00→14:59)
[2022-12-31] MEDS ORDERED: PIPERACILLIN/TAZOBACTAM SOD 4.5 GM in D5W MINI-BAG PLUS 50 ML IV SCH ×3 (06:00)
[2022-12-31 07:45] LABS: HEMATOCRIT 37.2 % (36.0-47.0); HEMOGLOBIN 12.9 g/dl (12.0-15.5); MEAN CORPUSCULAR HEMOGLOBIN 35.3 pg (27.0-33.0); MEAN CORPUSCULAR HGB CONC 34.7 g/dl (32.0-36.5); MEAN CORPUSCULAR VOLUME 101.9 fl (80.0-96.0); PLATELET COUNT, AUTOMATED 186 10^3/uL (150-450); RED BLOOD COUNT 3.65 10^6/uL (4.00-5.40); WHITE BLOOD COUNT 13.4 10^3/uL (4.0-10.0)
[2022-12-31 07:56] LABS: INR 0.96
[2022-12-31 07:57] LABS: PARTIAL THROMBOPLASTIN TIME 27.2 SECONDS (24.8-34.2)
[2022-12-31 07:59] VITALS: BP 168/98
[2022-12-31 08:07] LABS: ALBUMIN 3.4 G/DL (3.2-5.2); ALKALINE PHOSPHATASE 85 U/L (46-116); ALT/SGPT 17 U/L (7.0-40); AST/SGOT 46 U/L (<34); BILIRUBIN,TOTAL 1.6 MG/DL (0.3-1.2); BLOOD UREA NITROGEN 15 MG/DL (9-23); CALCIUM LEVEL 8.1 MG/DL (8.3-10.6); CARBON DIOXIDE LEVEL 26 MMOL/L (20-31); CHLORIDE LEVEL 100 MMOL/L (98-107); CREATININE FOR GFR 0.65 MG/DL (0.55-1.30); GLOMERULAR FILTRATION RATE > 60.0 (>45); GLUCOSE, FASTING 105 MG/DL (74-106); MAGNESIUM LEVEL 1.2 MG/DL (1.8-2.4); PHOSPHORUS LEVEL 2.8 MG/DL (2.4-5.1); POTASSIUM SERUM 3.3 MMOL/L (3.5-5.1); SODIUM LEVEL 134 MMOL/L (136-145); TOTAL PROTEIN 5.9 G/DL (5.7-8.2)
[2022-12-31 08:24] LABS: LIPASE 816 U/L (12-53)
[2022-12-31] MEDS: MULTIVITAMINS/MINERALS THERAP 1 TAB PO SCH (08:40)
[2022-12-31] MEDS: FOLIC ACID 1MG TAB PO SCH (08:40)
[2022-12-31] MEDS: ENOXAPARIN 40MG/0.4ML SYRINGE (J1650 PER 10MG) SC SCH (08:40)
[2022-12-31] MEDS ORDERED: POTASSIUM CHLORIDE 10MEQ SR TABLET PO ONE (08:45)
[2022-12-31] MEDS ORDERED: BENAZEPRIL 20 MG TAB PO SCH (09:00)
[2022-12-31] MEDS: MAG SULF 1GM/100ML (MAG RUN) 1 GM in IV 1 EA IV SCH ×2 (09:12→11:39)
[2022-12-31 09:19] LABS: BILIRUBIN,DIRECT 0.7 MG/DL (<0.4); TRIGLYCERIDES LEVEL 74 MG/DL (<150)
[2022-12-31] MEDS: ADVAIR HFA 230/21MCG INHALER INH SCH ×2 (11:08→19:06)
[2022-12-31] MEDS: busPIRone 5 MG TAB PO SCH ×2 (11:39→20:04)
[2022-12-31] MEDS: ASPIRIN 81MG ENTERIC TABLET PO SCH (11:40)
[2022-12-31] MEDS: MONTELUKAST 10 MG TAB PO SCH (11:40)
[2022-12-31] MEDS: rOPINIRole 0.25 MG TAB(REQUIP) PO SCH ×2 (11:40→20:05)
[2022-12-31] MEDS: CHLORTHALIDONE 12.5MG PER 1/2 TABLET PO SCH (11:40)
[2022-12-31] MEDS: CIPROFLOXACIN HC OTIC SUSPENSION AD SCH ×2 (11:40→20:05)
[2022-12-31 11:41] VITALS: BP 162/88
[2022-12-31] MEDS: NS 1,000 ML IV SCH ×2 (11:41→18:11)
[2022-12-31] MEDS: MORPHINE 2 MG/ML 1ML VIAL IV PRN ×2 (11:51→18:12)
[2022-12-31 15:36] LABS: ALBUMIN 3.3 G/DL (3.2-5.2); ALKALINE PHOSPHATASE 93 U/L (46-116); ALT/SGPT 18 U/L (7.0-40); AST/SGOT 58 U/L (<34); BILIRUBIN,TOTAL 1.1 MG/DL (0.3-1.2); BLOOD UREA NITROGEN 10 MG/DL (9-23); CALCIUM LEVEL 8.1 MG/DL (8.3-10.6); CARBON DIOXIDE LEVEL 26 MMOL/L (20-31); CHLORIDE LEVEL 102 MMOL/L (98-107); CREATININE FOR GFR 0.55 MG/DL (0.55-1.30); GLOMERULAR FILTRATION RATE > 60.0 (>45); GLUCOSE, FASTING 103 MG/DL (74-106); POTASSIUM SERUM 3.3 MMOL/L (3.5-5.1); SODIUM LEVEL 134 MMOL/L (136-145); TOTAL PROTEIN 5.6 G/DL (5.7-8.2)
[2022-12-31 15:40] VITALS: BP 160/92
[2022-12-31 20:00] VITALS: BP 155/89
[2022-12-31] MEDS: ROSUVASTATIN 10 MG TAB (CRESTOR) PO SCH (20:04)
[2022-12-31] MEDS: ACETAMINOPHEN 500 MG TAB PO SCH (20:10)
[2023-01-01] VITALS (9 sets, daily range): BP systolic 132–166; BP diastolic 75–93
[2023-01-01] MEDS ORDERED: KCL 10MEQ IN STERILE WATER 100ML As Ordered ONE (00:51)
[2023-01-01] MEDS: KCL 10MEQ/100ML SWI (KRUN) 10 MEQ in IV 1 EA IV SCH (00:54)
[2023-01-01] MEDS: PANTOPRAZOLE 40MG VIAL IV SCH (04:05)
[2023-01-01] MEDS: ACETAMINOPHEN TAB 650MG DOSE (2X325MG) PO PRN (05:50)
[2023-01-01] MEDS: ALBUTEROL SULFATE 2.5MG/0.5ML INH NEB SOLN NEB PRN ×3 (05:57→19:47)
[2023-01-01 06:21] LABS: HEMATOCRIT 35.6 % (36.0-47.0); HEMOGLOBIN 12.3 g/dl (12.0-15.5); MEAN CORPUSCULAR HEMOGLOBIN 35.3 pg (27.0-33.0); MEAN CORPUSCULAR HGB CONC 34.6 g/dl (32.0-36.5); MEAN CORPUSCULAR VOLUME 102.3 fl (80.0-96.0); PLATELET COUNT, AUTOMATED 174 10^3/uL (150-450); RED BLOOD COUNT 3.48 10^6/uL (4.00-5.40); WHITE BLOOD COUNT 12.7 10^3/uL (4.0-10.0)
[2023-01-01 07:05] LABS: ALKALINE PHOSPHATASE 88 U/L (46-116); ALT/SGPT 15 U/L (7.0-40); AST/SGOT 35 U/L (<34); BILIRUBIN,TOTAL 1.1 MG/DL (0.3-1.2); BLOOD UREA NITROGEN 5 MG/DL (9-23); CARBON DIOXIDE LEVEL 29 MMOL/L (20-31); CHLORIDE LEVEL 98 MMOL/L (98-107); CREATININE FOR GFR 0.52 MG/DL (0.55-1.30); GLOMERULAR FILTRATION RATE > 60.0 (>45); GLUCOSE, FASTING 77 MG/DL (74-106); MAGNESIUM LEVEL 1.3 MG/DL (1.8-2.4); PHOSPHORUS LEVEL 1.4 MG/DL (2.4-5.1); POTASSIUM SERUM 3.4 MMOL/L (3.5-5.1); SODIUM LEVEL 133 MMOL/L (136-145); TOTAL PROTEIN 5.2 G/DL (5.7-8.2)
[2023-01-01 07:09] LABS: LIPASE 219 U/L (12-53)
[2023-01-01] MEDS: ADVAIR HFA 230/21MCG INHALER INH SCH ×2 (07:23→19:47)
[2023-01-01] MEDS ORDERED: POTASSIUM CHLORIDE 10MEQ SR TABLET PO ONE (08:00)
[2023-01-01] MEDS: NS 1,000 ML IV SCH ×3 (08:24→23:31)
[2023-01-01] MEDS: MAG SULF 1GM/100ML (MAG RUN) 1 GM in IV 1 EA IV SCH ×3 (08:25→10:48)
[2023-01-01] MEDS: ASPIRIN 81MG ENTERIC TABLET PO SCH (08:26)
[2023-01-01] MEDS: BENAZEPRIL 20 MG TAB PO SCH (08:26)
[2023-01-01] MEDS: rOPINIRole 0.25 MG TAB(REQUIP) PO SCH ×2 (08:26→20:23)
[2023-01-01] MEDS: CHLORTHALIDONE 12.5MG PER 1/2 TABLET PO SCH (08:26)
[2023-01-01] MEDS: ACETAMINOPHEN 500 MG TAB PO SCH ×2 (08:27→20:23)
[2023-01-01] MEDS: MULTIVITAMINS/MINERALS THERAP 1 TAB PO SCH (08:27)
[2023-01-01] MEDS: busPIRone 5 MG TAB PO SCH ×2 (08:27→20:22)
[2023-01-01] MEDS: FOLIC ACID 1MG TAB PO SCH (08:27)
[2023-01-01] MEDS: THIAMINE 100 MG TAB PO SCH ×2 (08:27→20:22)
[2023-01-01] MEDS: MONTELUKAST 10 MG TAB PO SCH (08:27)
[2023-01-01] MEDS: ENOXAPARIN 40MG/0.4ML SYRINGE (J1650 PER 10MG) SC SCH (08:28)
[2023-01-01] MEDS: CIPROFLOXACIN HC OTIC SUSPENSION AD SCH ×2 (08:28→20:24)
[2023-01-01] MEDS ORDERED: DOCUSATE SODIUM 100MG CAPSULE PO PRN (09:30)
[2023-01-01] MEDS ORDERED: POTASSIUM PHOSPHATE INJ 30 MMOL in D5W 500 ML IV ONE (10:00)
[2023-01-01] MEDS: MORPHINE 2 MG/ML 1ML VIAL IV PRN ×3 (10:54→20:22)
[2023-01-01] MEDS ORDERED: ACETAMINOPHEN TAB 650MG DOSE (2X325MG) PO ONE (17:15)
[2023-01-01] MEDS: SIMETHICONE 80MG CHEW TAB PO PRN ×2 (17:15→23:33)
[2023-01-01] MEDS: ROSUVASTATIN 10 MG TAB (CRESTOR) PO SCH (20:22)
[2023-01-02] VITALS (7 sets, daily range): BP systolic 136–172; BP diastolic 76–98
[2023-01-02] MEDS: NS 1,000 ML IV SCH ×3 (01:40→12:30)
[2023-01-02] MEDS: PANTOPRAZOLE 40MG VIAL IV SCH (02:29)
[2023-01-02] MEDS: MORPHINE 2 MG/ML 1ML VIAL IV PRN ×2 (02:31→06:54)
[2023-01-02] MEDS ORDERED: hydrALAZINE 20MG/ML 1ML VIAL IV ONE (05:00)
[2023-01-02 05:43] LABS: HEMATOCRIT 32.5 % (36.0-47.0); HEMOGLOBIN 11.3 g/dl (12.0-15.5); MEAN CORPUSCULAR HEMOGLOBIN 35.2 pg (27.0-33.0); MEAN CORPUSCULAR HGB CONC 34.8 g/dl (32.0-36.5); MEAN CORPUSCULAR VOLUME 101.2 fl (80.0-96.0); PLATELET COUNT, AUTOMATED 168 10^3/uL (150-450); RED BLOOD COUNT 3.21 10^6/uL (4.00-5.40); WHITE BLOOD COUNT 10.7 10^3/uL (4.0-10.0)
[2023-01-02 06:04] LABS: LIPASE 63 U/L (12-53)
[2023-01-02 06:09] LABS: ALBUMIN 2.9 G/DL (3.2-5.2); ALKALINE PHOSPHATASE 93 U/L (46-116); ALT/SGPT 14 U/L (7.0-40); AST/SGOT 31 U/L (<34); BILIRUBIN,TOTAL 0.9 MG/DL (0.3-1.2); BLOOD UREA NITROGEN < 5 MG/DL (9-23); CALCIUM LEVEL 7.8 MG/DL (8.3-10.6); CARBON DIOXIDE LEVEL 26 MMOL/L (20-31); CHLORIDE LEVEL 99 MMOL/L (98-107); CREATININE FOR GFR 0.46 MG/DL (0.55-1.30); GLOMERULAR FILTRATION RATE > 60.0 (>45); GLUCOSE, FASTING 90 MG/DL (74-106); POTASSIUM SERUM 3.6 MMOL/L (3.5-5.1); SODIUM LEVEL 131 MMOL/L (136-145); TOTAL PROTEIN 5.3 G/DL (5.7-8.2)
[2023-01-02 06:55] LABS: MAGNESIUM LEVEL 1.4 MG/DL (1.8-2.4); PHOSPHORUS LEVEL 2.3 MG/DL (2.4-5.1)
[2023-01-02] MEDS ORDERED: PERCOCET 5MG/325MG TAB PO PRN (07:10)
[2023-01-02] MEDS: ADVAIR HFA 230/21MCG INHALER INH SCH (07:29)
[2023-01-02] MEDS ORDERED: ISOVUE-370 76% 100ML VIAL As Ordered ONE (07:54)
[2023-01-02] MEDS ORDERED: K-PHOS NEUTRAL 250MG TABLET (SOD.PHOSPHATE/POT.PHOSPHATE) PO SCH (09:00)
[2023-01-02] MEDS: ACETAMINOPHEN 500 MG TAB PO SCH (09:00)
[2023-01-02] MEDS: CHLORTHALIDONE 12.5MG PER 1/2 TABLET PO SCH (09:34)
[2023-01-02] MEDS: BENAZEPRIL 20 MG TAB PO SCH (09:34)
[2023-01-02] MEDS: busPIRone 5 MG TAB PO SCH (09:34)
[2023-01-02] MEDS: ASPIRIN 81MG ENTERIC TABLET PO SCH (09:35)
[2023-01-02] MEDS: rOPINIRole 0.25 MG TAB(REQUIP) PO SCH (09:35)
[2023-01-02] MEDS: MONTELUKAST 10 MG TAB PO SCH (09:35)
[2023-01-02] MEDS: ENOXAPARIN 40MG/0.4ML SYRINGE (J1650 PER 10MG) SC SCH (09:35)
[2023-01-02] MEDS: MULTIVITAMINS/MINERALS THERAP 1 TAB PO SCH (09:35)
[2023-01-02] MEDS: THIAMINE 100 MG TAB PO SCH (09:35)
[2023-01-02] MEDS: FOLIC ACID 1MG TAB PO SCH (09:35)
[2023-01-02] MEDS: MAG SULF 1GM/100ML (MAG RUN) 1 GM in IV 1 EA IV SCH ×2 (09:36→10:30)
[2023-01-02] MEDS: PROMETHAZINE 25MG/ML 1ML VIAL IV PRN (09:44)
[2023-01-02] MEDS ORDERED: PERC5TAB12 PO (11:05)
[2023-01-02] MEDS ORDERED: MAGN500T12 PO (11:20)
[2023-01-02] MEDS ORDERED: FOLI1TAB11 PO (11:20)
[2023-01-02] MEDS ORDERED: CREO24CA PO (11:20)
[2023-01-02] MEDS ORDERED: VITMTA PO (11:20)
[2023-01-02] MEDS ORDERED: CREON-24 CAPSULE PO SCH (12:30)
[2023-01-03] MEDS ORDERED: PERC10TA26 PO (10:56)
== END 2023-01-02 13:40 | disposition home or self-care (01) | DRG 282 ==
LOC: M ED 16:09 → M ED INP 12-31 01:16 → ENRESERV 12-31 03:00 → M PCU 12-31 03:45
PROVIDERS: ADMIT Family Medicine; ATTEND Internal Medicine
DX: K85.20 Alcohol induced acute pancreatitis without necrosis or infection (principal); E83.42 Hypomagnesemia; I10 Essential (primary) hypertension; J44.9 Chronic obstructive pulmonary disease, unspecified; R91.1 Solitary pulmonary nodule; G25.81 Restless legs syndrome; F10.10 Alcohol abuse, uncomplicated; H60.91 Unspecified otitis externa, right ear; F39 Unspecified mood [affective] disorder; R59.1 Generalized enlarged lymph nodes; Z88.5 Allergy status to narcotic agent; Z79.899 Other long term (current) drug therapy; K21.9 Gastro-esophageal reflux disease without esophagitis; F41.9 Anxiety disorder, unspecified; F17.200 Nicotine dependence, unspecified, uncomplicated; E87.6 Hypokalemia

== ENCOUNTER → 2023-01-09 | Outpatient (CLI) | payer OTHER ==
[~2023-01-09] MED LIST changes: +ASPI81TA26 PO; +AZIT-12 PO; +CHLO125TA PO; +CREO24CA PO; +FLUT1BLS17 PO; +MAGN500T12 PO; +MONT10TA97 PO; +PERC10TA26 PO; +PERC5TAB12 PO; +ROSU10TA6 PO
== END ==
LOC: M WUC 10:59
PROVIDERS: ATTEND Internal Medicine
DX: E83.42 Hypomagnesemia (principal)

== ENCOUNTER → 2023-01-09 | Outpatient (CLI) | payer OTHER ==
[2023-01-09 12:59] LABS: BASO # 0.1 10^3/uL (0.0-0.2); BASO % 0.8 % (0.0-1.0); EOS # 0.2 10^3/uL (0.0-0.5); EOS % 2.6 % (0.0-3.0); HEMATOCRIT 39.3 % (36.0-47.0); HEMOGLOBIN 13.1 g/dl (12.0-15.5); LYMPH # 2.3 10^3/uL (1.5-5.0); LYMPH % 31.5 % (24.0-44.0); MEAN CORPUSCULAR HEMOGLOBIN 34.1 pg (27.0-33.0); MEAN CORPUSCULAR HGB CONC 33.3 g/dl (32.0-36.5); MEAN CORPUSCULAR VOLUME 102.3 fl (80.0-96.0); MONO # 0.9 10^3/uL (0.0-0.8); MONO % 12.7 % (2.0-8.0); NEUTROPHILS # 3.7 10^3/uL (1.5-8.5); NEUTROPHILS % 51.2 % (36.0-66.0); PLATELET COUNT, AUTOMATED 639 10^3/uL (150-450); RED BLOOD COUNT 3.84 10^6/uL (4.00-5.40); WHITE BLOOD COUNT 7.3 10^3/uL (4.0-10.0)
[2023-01-09 13:27] LABS: LIPASE 246 U/L (12-53)
[2023-01-09 13:28] LABS: AMYLASE 219 U/L (30-118)
[2023-01-09 13:29] LABS: ALBUMIN 3.6 G/DL (3.2-5.2); ALKALINE PHOSPHATASE 94 U/L (46-116); ALT/SGPT 18 U/L (7.0-40); AST/SGOT 25 U/L (<34); BILIRUBIN,TOTAL 0.2 MG/DL (0.3-1.2); BLOOD UREA NITROGEN 11 MG/DL (9-23); CALCIUM LEVEL 9.8 MG/DL (8.3-10.6); CARBON DIOXIDE LEVEL 29 MMOL/L (20-31); CHLORIDE LEVEL 92 MMOL/L (98-107); CREATININE FOR GFR 0.76 MG/DL (0.55-1.30); GLOMERULAR FILTRATION RATE > 60.0 (>45); GLUCOSE, FASTING 95 MG/DL (74-106); POTASSIUM SERUM 4.5 MMOL/L (3.5-5.1); SODIUM LEVEL 127 MMOL/L (136-145); TOTAL PROTEIN 6.8 G/DL (5.7-8.2)
== END ==
LOC: M WUC 11:01
PROVIDERS: ATTEND Family Medicine
DX: K21.9 Gastro-esophageal reflux disease without esophagitis (principal); K85.91 Acute pancreatitis with uninfected necrosis, unspecified; I10 Essential (primary) hypertension

== ENCOUNTER → 2023-03-06 | Outpatient (CLI) | payer OTHER ==
[~2023-03-06] MED LIST changes: +FLUT50SP17; -FLUTISP
== END ==
LOC: M RAD 12:52
PROVIDERS: ATTEND Specialist
DX: D49.4 Neoplasm of unspecified behavior of bladder (principal)

== ENCOUNTER → 2023-05-04 | Outpatient (REF) | payer OTHER ==
[~2023-05-04] MED LIST changes: -ROPI0.253 PO; +ROPI5TAB19 PO
[2023-05-04 15:59] LABS: APPEARANCE, URINE CLEAR (CLEAR); BACTERIA, URINE AUTO NEGATIVE (NEGATIVE); BILIRUBIN, URINE AUTO NEGATIVE (NEGATIVE); BLOOD, URINE BLOOD NEGATIVE (NEGATIVE); COLOR, URINE STRAW (YELLOW); GLUCOSE, URINE (UA) AUTO NEGATIVE (NEGATIVE); KETONE, URINE AUTO NEGATIVE (NEGATIVE); LEUKOCYTE ESTERASE, URINE AUTO NEGATIVE (NEGATIVE); NITRITE, URINE AUTO NEGATIVE (NEGATIVE); PROTEIN, URINE AUTO NEGATIVE (NEGATIVE); RBC, URINE AUTO 0 /HPF (0-3); SPECIFIC GRAVITY URINE AUTO 1.004 (1.002-1.035); SQUAMOUS EPITHELIAL CELL UR AU 0 /HPF (0-6); UROBILINOGEN, URINE AUTO 0.2 mg/dL (0.0-2.0); WBC, URINE AUTO 0 /HPF (0-3)
== END ==
LOC: M LAB REF 11:27
PROVIDERS: ATTEND Specialist
DX: N39.0 Urinary tract infection, site not specified (principal)

== ENCOUNTER → 2023-06-29 | Outpatient (REF) | payer OTHER ==
[2023-06-29 11:37] LABS: APPEARANCE, URINE CLEAR (CLEAR); BACTERIA, URINE AUTO 1+ (NEGATIVE); BILIRUBIN, URINE AUTO NEGATIVE (NEGATIVE); BLOOD, URINE BLOOD NEGATIVE (NEGATIVE); COLOR, URINE YELLOW (YELLOW); GLUCOSE, URINE (UA) AUTO NEGATIVE (NEGATIVE); KETONE, URINE AUTO NEGATIVE (NEGATIVE); LEUKOCYTE ESTERASE, URINE AUTO NEGATIVE (NEGATIVE); MUCUS, URINE SMALL (NEGATIVE); NITRITE, URINE AUTO NEGATIVE (NEGATIVE); PROTEIN, URINE AUTO NEGATIVE (NEGATIVE); RBC, URINE AUTO 0 /HPF (0-3); SPECIFIC GRAVITY URINE AUTO 1.008 (1.002-1.035); SQUAMOUS EPITHELIAL CELL UR AU 0 /HPF (0-6); UROBILINOGEN, URINE AUTO 0.2 mg/dL (0.0-2.0); WBC, URINE AUTO 0 /HPF (0-3)
== END ==
LOC: M LAB REF 11:15
PROVIDERS: ATTEND Physician Assistant
DX: N39.0 Urinary tract infection, site not specified (principal); R93.41 Abnormal radiologic findings on diagnostic imaging of renal pelvis, ureter, or bladder

== ENCOUNTER → 2023-07-02 | Outpatient (CLI) | payer OTHER ==
[2023-07-02 08:28] LABS: ALBUMIN 3.3 G/DL (3.2-5.2); ALKALINE PHOSPHATASE 63 U/L (46-116); BLOOD UREA NITROGEN 10 MG/DL (9-23); CARBON DIOXIDE LEVEL 29 MMOL/L (20-31); CHLORIDE LEVEL 108 MMOL/L (98-107); GLUCOSE, FASTING 85 MG/DL (74-106); MAGNESIUM LEVEL 1.1 MG/DL (1.8-2.4); POTASSIUM SERUM 3.9 MMOL/L (3.5-5.1); SODIUM LEVEL 142 MMOL/L (136-145); TRIGLYCERIDES LEVEL 169 MG/DL (<150)
[2023-07-02 08:43] LABS: ALT/SGPT 20 U/L (7.0-40); AST/SGOT 32 U/L (<34); BILIRUBIN,TOTAL 0.7 MG/DL (0.3-1.2); CHOLESTEROL LEVEL 158 MG/DL (<200); CREATININE FOR GFR 0.57 MG/DL (0.55-1.30); GLOMERULAR FILTRATION RATE > 60.0 (>45)
[2023-07-02 13:21] LABS: CHOLESTEROL RISK RATIO 1.97 (<5); HDL CHOLESTEROL 80.2 MG/DL (>40); NON-HDL-C 77.8 MG/DL
== END ==
LOC: M LAB 07:06
PROVIDERS: ATTEND Physician Assistant
DX: I47.1 Supraventricular tachycardia (principal); I10 Essential (primary) hypertension; E78.00 Pure hypercholesterolemia, unspecified; R60.0 Localized edema

== ENCOUNTER → 2023-11-26 | Outpatient (CLI) | payer OTHER ==
[~2023-11-26] MED LIST changes: -FLUT50SP17; +FLUTISP
[2023-11-26 19:40] LABS: APPEARANCE, URINE HAZY (CLEAR); BACTERIA, URINE AUTO NEGATIVE (NEGATIVE); BILIRUBIN, URINE AUTO NEGATIVE (NEGATIVE); BLOOD, URINE BLOOD NEGATIVE (NEGATIVE); COLOR, URINE YELLOW (YELLOW); GLUCOSE, URINE (UA) AUTO NEGATIVE (NEGATIVE); KETONE, URINE AUTO NEGATIVE (NEGATIVE); LEUKOCYTE ESTERASE, URINE AUTO NEGATIVE (NEGATIVE); NITRITE, URINE AUTO NEGATIVE (NEGATIVE); PROTEIN, URINE AUTO 1+ mg/dL (NEGATIVE); RBC, URINE AUTO 0 /HPF (0-3); SPECIFIC GRAVITY URINE AUTO 1.024 (1.002-1.035); SQUAMOUS EPITHELIAL CELL UR AU 11 /HPF (0-6); UROBILINOGEN, URINE AUTO 0.2 mg/dL (0.0-2.0); WBC, URINE AUTO 0 /HPF (0-3)
[2023-11-26 19:42] LABS: BASO # 0.1 10^3/uL (0.0-0.2); BASO % 0.6 % (0.0-1.0); EOS # 0.1 10^3/uL (0.0-0.5); EOS % 1.4 % (0.0-3.0); HEMATOCRIT 41.9 % (36.0-47.0); HEMOGLOBIN 13.5 g/dl (12.0-15.5); LYMPH # 2.3 10^3/uL (1.5-5.0); LYMPH % 23.1 % (24.0-44.0); MEAN CORPUSCULAR HEMOGLOBIN 32.6 pg (27.0-33.0); MEAN CORPUSCULAR HGB CONC 32.2 g/dl (32.0-36.5); MEAN CORPUSCULAR VOLUME 101.2 fl (80.0-96.0); MONO % 10.1 % (2.0-8.0); NEUTROPHILS # 6.3 10^3/uL (1.5-8.5); NEUTROPHILS % 64.5 % (36.0-66.0); PLATELET COUNT, AUTOMATED 235 10^3/uL (150-450); RED BLOOD COUNT 4.14 10^6/uL (4.00-5.40); WHITE BLOOD COUNT 9.8 10^3/uL (4.0-10.0)
[2023-11-26 20:08] LABS: ALBUMIN 3.6 G/DL (3.2-5.2); ALKALINE PHOSPHATASE 77 U/L (46-116); ALT/SGPT 12 U/L (7.0-40); AST/SGOT 23 U/L (<34); BILIRUBIN,TOTAL 0.5 MG/DL (0.3-1.2); BLOOD UREA NITROGEN 15 MG/DL (9-23); CALCIUM LEVEL 9.4 MG/DL (8.3-10.6); CARBON DIOXIDE LEVEL 30 MMOL/L (20-31); CHLORIDE LEVEL 104 MMOL/L (98-107); GLOMERULAR FILTRATION RATE > 60.0 (>45); GLUCOSE, FASTING 105 MG/DL (74-106); POTASSIUM SERUM 4.7 MMOL/L (3.5-5.1); SODIUM LEVEL 137 MMOL/L (136-145); TOTAL PROTEIN 6.9 G/DL (5.7-8.2)
== END ==
LOC: M WUC 15:02
PROVIDERS: ATTEND Family Medicine
DX: I10 Essential (primary) hypertension (principal); F41.1 Generalized anxiety disorder; J44.9 Chronic obstructive pulmonary disease, unspecified

== ENCOUNTER → 2023-12-27 | Outpatient (CLI) | payer OTHER | LOC: M WHC 09:00 | PROVIDERS: ATTEND Family Medicine | DX: Z12.31 Encounter for screening mammogram for malignant neoplasm of breast (principal) ==

== ENCOUNTER → 2024-01-03 | Outpatient (CLI) | payer OTHER | LOC: M WUC 15:00 | PROVIDERS: ATTEND Family Medicine | DX: M54.2 Cervicalgia (principal) ==

== ENCOUNTER → 2024-03-21 | Outpatient (CLI) | payer OTHER ==
[~2024-03-21] MED LIST changes: -ROSU10TA6 PO; +ROSU10TA61 PO
[2024-03-21 19:17] LABS: HEMOGLOBIN A1c 5.2 % (4.0-6.0)
[2024-03-21 19:32] LABS: ALBUMIN 3.8 G/DL (3.2-5.2); ALKALINE PHOSPHATASE 84 U/L (46-116); ALT/SGPT 18 U/L (7.0-40); AST/SGOT 20 U/L (<34); BASO # 0.1 10^3/uL (0.0-0.2); BASO % 0.6 % (0.0-1.0); BILIRUBIN,TOTAL 0.5 MG/DL (0.3-1.2); BLOOD UREA NITROGEN 27 MG/DL (9-23); CALCIUM LEVEL 9.6 MG/DL (8.3-10.6); CARBON DIOXIDE LEVEL 30 MMOL/L (20-31); CHLORIDE LEVEL 106 MMOL/L (98-107); CREATININE FOR GFR 0.96 MG/DL (0.55-1.30); EOS # 0.3 10^3/uL (0.0-0.5); EOS % 3.1 % (0.0-3.0); GLOMERULAR FILTRATION RATE > 60.0 (>45); GLUCOSE, FASTING 103 MG/DL (74-106); LYMPH # 2.2 10^3/uL (1.5-5.0); MEAN CORPUSCULAR HEMOGLOBIN 33.5 pg (27.0-33.0); MEAN CORPUSCULAR HGB CONC 32.6 g/dl (32.0-36.5); MEAN CORPUSCULAR VOLUME 102.9 fl (80.0-96.0); MONO % 10.1 % (2.0-8.0); NEUTROPHILS # 6.7 10^3/uL (1.5-8.5); NEUTROPHILS % 64.9 % (36.0-66.0); PLATELET COUNT, AUTOMATED 262 10^3/uL (150-450); POTASSIUM SERUM 4.2 MMOL/L (3.5-5.1); RED BLOOD COUNT 4.18 10^6/uL (4.00-5.40); RHEUMATOID FACTOR QUANT 5.4 IU/ML (<14); SODIUM LEVEL 139 MMOL/L (136-145); TOTAL PROTEIN 6.4 G/DL (5.7-8.2); WHITE BLOOD COUNT 10.3 10^3/uL (4.0-10.0)
[2024-03-21 19:34] LABS: FOLATE 8.3 NG/ML (>5.4); THYROID STIMULATING HORMONE 1.316 uIU/ML (0.55-4.78); VITAMIN B12 LEVEL 342 PG/ML (211-911)
[2024-03-21 19:51] LABS: ERYTHROCYTE SEDIMENTATION RATE 9 mm/hr (0-30)
== END ==
LOC: M WUC 15:21
PROVIDERS: ATTEND Psychiatry & Neurology Neurology
DX: G62.9 Polyneuropathy, unspecified (principal)

== ENCOUNTER → 2024-04-16 | Outpatient (CLI) | payer OTHER | LOC: M WUC 09:26 | PROVIDERS: ATTEND Internal Medicine | DX: J44.1 Chronic obstructive pulmonary disease with (acute) exacerbation (principal) ==

== ENCOUNTER → 2024-08-14 | Outpatient (CLI) | payer OTHER ==
[2024-08-14 10:01] LABS: ALBUMIN 4.1 G/DL (3.2-5.2); ALKALINE PHOSPHATASE 129 U/L (46-116); ALT/SGPT 44 U/L (7.0-40); AST/SGOT 99 U/L (<34); BILIRUBIN,TOTAL 1.3 MG/DL (0.3-1.2); BLOOD UREA NITROGEN 24 MG/DL (9-23); CARBON DIOXIDE LEVEL 30 MMOL/L (20-31); CHLORIDE LEVEL 104 MMOL/L (98-107); CHOLESTEROL LEVEL 226 MG/DL (<200); CHOLESTEROL RISK RATIO 2.25 (<5); CREATININE FOR GFR 0.59 MG/DL (0.55-1.30); GLOMERULAR FILTRATION RATE > 60.0 (>45); GLUCOSE, FASTING 158 MG/DL (74-106); HDL CHOLESTEROL 100.4 MG/DL (>40); LDL CHOLESTEROL 96.8 MG/DL (<100); MAGNESIUM LEVEL 1.8 MG/DL (1.8-2.4); NON-HDL-C 125.6 MG/DL; POTASSIUM SERUM 4.7 MMOL/L (3.5-5.1); SODIUM LEVEL 138 MMOL/L (136-145); TOTAL PROTEIN 7.3 G/DL (5.7-8.2); TRIGLYCERIDES LEVEL 144 MG/DL (<150)
== END ==
LOC: M LAB 08:27
PROVIDERS: ATTEND Physician Assistant
DX: I47.10 Supraventricular tachycardia, unspecified (principal); I10 Essential (primary) hypertension; E78.00 Pure hypercholesterolemia, unspecified

== ENCOUNTER → 2024-10-07 | Outpatient (CLI) | payer OTHER | LOC: M RAD 13:06 | PROVIDERS: ATTEND Internal Medicine Pulmonary Disease | DX: R91.8 Other nonspecific abnormal finding of lung field (principal) ==

== ENCOUNTER → 2024-10-16 | Outpatient (CLI) | payer OTHER ==
[2024-10-16 16:27] LABS: ALBUMIN 3.6 G/DL (3.2-5.2); ALKALINE PHOSPHATASE 116 U/L (35-104); ALT/SGPT 22 U/L (7.0-40); AST/SGOT 49 U/L (<34); BLOOD UREA NITROGEN 12 MG/DL (9-23); CALCIUM LEVEL 9.2 MG/DL (8.3-10.6); CARBON DIOXIDE LEVEL 33 MMOL/L (20-31); CHLORIDE LEVEL 102 MMOL/L (98-107); CREATININE FOR GFR 0.46 MG/DL (0.55-1.30); GLOMERULAR FILTRATION RATE > 60.0 (>45); GLUCOSE, FASTING 99 MG/DL (74-106); POTASSIUM SERUM 4.1 MMOL/L (3.5-5.1); SODIUM LEVEL 140 MMOL/L (136-145); TOTAL PROTEIN 6.5 G/DL (5.7-8.2)
[2024-10-16 16:36] LABS: HEMOGLOBIN A1c 4.8 % (4.0-6.0)
[2024-10-16 16:58] LABS: BASO # 0.1 10^3/uL (0.0-0.2); BASO % 0.7 % (0.0-1.0); EOS # 0.2 10^3/uL (0.0-0.5); EOS % 1.4 % (0.0-3.0); HEMATOCRIT 42.9 % (36.0-47.0); HEMOGLOBIN 13.6 g/dl (12.0-15.5); LYMPH # 2.9 10^3/uL (1.5-5.0); LYMPH % 24.5 % (24.0-44.0); MEAN CORPUSCULAR HEMOGLOBIN 33.7 pg (27.0-33.0); MEAN CORPUSCULAR HGB CONC 31.7 g/dl (32.0-36.5); MEAN CORPUSCULAR VOLUME 106.2 fl (80.0-96.0); MONO % 8.3 % (2.0-8.0); NEUTROPHILS # 7.7 10^3/uL (1.5-8.5); NEUTROPHILS % 64.6 % (36.0-66.0); PLATELET COUNT, AUTOMATED 248 10^3/uL (150-450); RED BLOOD COUNT 4.04 10^6/uL (4.00-5.40); WHITE BLOOD COUNT 11.9 10^3/uL (4.0-10.0)
== END ==
LOC: M WUC 10:55
PROVIDERS: ATTEND Family Medicine
DX: J44.9 Chronic obstructive pulmonary disease, unspecified (principal); K21.9 Gastro-esophageal reflux disease without esophagitis; R73.09 Other abnormal glucose

== ENCOUNTER → 2025-01-27 | Outpatient (CLI) | payer OTHER | LOC: M WHC 06:41 | PROVIDERS: ATTEND Family Medicine | DX: Z12.31 Encounter for screening mammogram for malignant neoplasm of breast (principal) ==

== ENCOUNTER → 2025-07-09 | Outpatient (CLI) | payer MEDICARE, OTHER ==
[~2025-07-09] MED LIST changes: +MULTTAB61 PO
== END ==
LOC: M RAD 07:05
PROVIDERS: ATTEND Internal Medicine Pulmonary Disease
DX: J44.9 Chronic obstructive pulmonary disease, unspecified (principal)

== ENCOUNTER → 2025-07-17 | Outpatient (CLI) | payer MEDICARE, OTHER ==
[2025-07-17 15:26] LABS: BASO # 0.0 10^3/uL (0.0-0.2); BASO % 0.3 % (0.0-1.0); EOS # 0.1 10^3/uL (0.0-0.5); EOS % 0.9 % (0.0-3.0); LYMPH # 1.9 10^3/uL (1.5-5.0); LYMPH % 32.4 % (24.0-44.0); MONO # 0.5 10^3/uL (0.0-0.8); MONO % 9.2 % (2.0-8.0); NEUTROPHILS # 3.3 10^3/uL (1.5-8.5); NEUTROPHILS % 56.9 % (36.0-66.0); PLATELET COUNT, AUTOMATED 322 10^3/uL (150-450)
== END ==
LOC: M WUC 11:00
PROVIDERS: ATTEND Family Medicine
DX: D64.9 Anemia, unspecified (principal)

== ENCOUNTER → 2025-07-21 | Outpatient (CLI) | payer MEDICARE, OTHER ==
[2025-07-21 13:10] LABS: BASO # 0.0 10^3/uL (0.0-0.2); BASO % 0.2 % (0.0-1.0); EOS # 0.0 10^3/uL (0.0-0.5); EOS % 0.3 % (0.0-3.0); LYMPH # 0.6 10^3/uL (1.5-5.0); LYMPH % 4.0 % (24.0-44.0); MONO # 0.4 10^3/uL (0.0-0.8); MONO % 2.4 % (2.0-8.0); NEUTROPHILS # 13.7 10^3/uL (1.5-8.5); NEUTROPHILS % 92.0 % (36.0-66.0); PLATELET COUNT, AUTOMATED 303 10^3/uL (150-450)
== END ==
LOC: M LAB 12:00
PROVIDERS: ATTEND Family Medicine
DX: D64.9 Anemia, unspecified (principal)

== ENCOUNTER → 2025-07-27 | Outpatient (CLI) | payer MEDICARE ==
[2025-07-27 18:39] LABS: BASO # 0.0 10^3/uL (0.0-0.2); BASO % 0.4 % (0.0-1.0); EOS # 0.0 10^3/uL (0.0-0.5); EOS % 0.4 % (0.0-3.0); LYMPH # 1.4 10^3/uL (1.5-5.0); LYMPH % 18.2 % (24.0-44.0); MONO # 0.9 10^3/uL (0.0-0.8); MONO % 11.1 % (2.0-8.0); NEUTROPHILS # 5.5 10^3/uL (1.5-8.5); NEUTROPHILS % 69.5 % (36.0-66.0); PLATELET COUNT, AUTOMATED 518 10^3/uL (150-450)
== END ==
LOC: M WUC 15:41
PROVIDERS: ATTEND Family Medicine
DX: K29.61 Other gastritis with bleeding (principal)

== ENCOUNTER → 2025-08-05 | Outpatient (REF) | payer MEDICARE | LOC: M LAB REF 13:07 | PROVIDERS: ATTEND Internal Medicine Pulmonary Disease | DX: J44.9 Chronic obstructive pulmonary disease, unspecified (principal) ==

== ENCOUNTER → 2025-08-12 | Outpatient (CLI) | payer MEDICARE | LOC: M RAD 08:08 | PROVIDERS: ATTEND Internal Medicine Pulmonary Disease | DX: J44.9 Chronic obstructive pulmonary disease, unspecified (principal); R91.8 Other nonspecific abnormal finding of lung field; J47.9 Bronchiectasis, uncomplicated; J43.9 Emphysema, unspecified; I70.0 Atherosclerosis of aorta ==

== ENCOUNTER → 2025-08-21 | Outpatient (CLI) | payer MEDICARE ==
[~2025-08-21] MED LIST changes: -ROSU10TA61 PO; +ROSU10TA90 PO
[2025-08-21 12:36] LABS: BASO # 0.1 10^3/uL (0.0-0.2); BASO % 0.6 % (0.0-1.0); EOS # 0.3 10^3/uL (0.0-0.5); EOS % 2.3 % (0.0-3.0); LYMPH # 2.2 10^3/uL (1.5-5.0); LYMPH % 20.2 % (24.0-44.0); MONO # 0.9 10^3/uL (0.0-0.8); MONO % 8.4 % (2.0-8.0); NEUTROPHILS # 7.3 10^3/uL (1.5-8.5); NEUTROPHILS % 67.9 % (36.0-66.0); PLATELET COUNT, AUTOMATED 444 10^3/uL (150-450)
== END ==
LOC: M WUC 09:31
PROVIDERS: ATTEND Family Medicine
DX: D64.9 Anemia, unspecified (principal); R19.7 Diarrhea, unspecified

== ENCOUNTER → 2025-09-16 | Outpatient (CLI) | payer MEDICARE ==
[2025-09-16 11:22] LABS: CALCIUM LEVEL 8.5 MG/DL (8.3-10.6); CARBON DIOXIDE LEVEL > 40.0 MMOL/L (20-31); CHLORIDE LEVEL 94 MMOL/L (98-107); CREATININE FOR GFR 0.53 MG/DL (0.55-1.30); GLOMERULAR FILTRATION RATE > 90.0 (>45); MAGNESIUM LEVEL 1.4 MG/DL (1.8-2.4); POTASSIUM SERUM 2.5 MMOL/L (3.5-5.1); SODIUM LEVEL 139 MMOL/L (136-145)
== END ==
LOC: M LAB 09:24
PROVIDERS: ATTEND Physician Assistant
DX: I50.9 Heart failure, unspecified (principal); E83.42 Hypomagnesemia

== ENCOUNTER → 2025-09-22 | Outpatient (CLI) | payer MEDICARE ==
[~2025-09-22] MED LIST changes: +BUDE10.7 IH
== END ==
LOC: M PLAIMG 14:58
PROVIDERS: ATTEND Physician Assistant
DX: I50.9 Heart failure, unspecified (principal); I34.0 Nonrheumatic mitral (valve) insufficiency

== ENCOUNTER → 2025-10-13 | Outpatient (REF) | payer MEDICARE | LOC: M LAB REF 11:00 | PROVIDERS: ATTEND Family Medicine | DX: R19.7 Diarrhea, unspecified (principal); R14.0 Abdominal distension (gaseous); D64.0 Hereditary sideroblastic anemia ==

== ENCOUNTER → 2025-10-13 | Outpatient (CLI) | payer MEDICARE | LOC: M RAD 08:21 | PROVIDERS: ATTEND Family Medicine | DX: R14.0 Abdominal distension (gaseous) (principal); R18.8 Other ascites; R19.7 Diarrhea, unspecified; R93.5 Abnormal findings on diagnostic imaging of other abdominal regions, including retroperitoneum ==